=== PATIENT | female | born 1965 | race Caucasian/White ===

== ENCOUNTER 2016-05-23 09:41 | Inpatient (IN) | payer OTHER ==
[~2016-05-23] VITALS: Ht 165.1 cm; Wt 81.2 kg
[2016-05-23 08:20] VITALS: BP 127/82; PULSE 78; RESP 18
[~2016-05-23 09:41] MED LIST: METH10SO PO
[2016-05-23] MEDS ORDERED: KETOROLAC 30 MG INJ IV STA (10:17)
[2016-05-23] MEDS ORDERED: SODIUM CHLORIDE 0.9% 1L BAG IV* STA (10:17)
[2016-05-23] MEDS ORDERED: CEFEPIME 2GM/50 ML (PMX) 50 ML IVPB STA (10:17)
[2016-05-23] MEDS ORDERED: VANCOMYCIN 1 GM (PMX) 250 ML IVPB ONE (10:30)
[2016-05-23] MEDS ORDERED: ONDANSETRON 4 MG INJ IV PRN ×2 (11:30→14:00)
[2016-05-23] MEDS ORDERED: ACETAMINOPHEN 325 MG TAB PO PRN ×2 (11:30→14:00)
[2016-05-23 11:58] LABS: BASOPHILS % 0.1 % (0.0-2.0); EOSINOPHILS % 0.1 % (0.0-7.0); HEMATOCRIT 38.6 % (37.0-47.0); HEMOGLOBIN 13.6 g/dl (12.0-16.0); LYMPHOCYTES # 1.2 10^3/ul (0.8-2.9); LYMPHOCYTES % 14.8 % (15.0-51.0); MEAN CORPUSCULAR HGB CONC 35.1 g/dl (32.0-37.0); MEAN CORPUSCULAR VOLUME 93.9 fl (82.0-101.0); MEAN PLATELET VOLUME 8.5 fl (7.4-10.4); MONOCYTE # 0.5 10^3/ul (0.3-0.9); MONOCYTES % 6.4 % (0.0-11.0); NEUTROPHIL # 6.4 10^3/ul (1.6-7.5); NEUTROPHILS % 78.6 % (39.0-77.0); PLATELET COUNT 175 10^3/UL (140-440); RED BLOOD COUNT 4.11 10^6/ul (4.20-5.40); RED CELL DISTRIBUTION WIDTH 11.9 % (11.5-14.5); UNCORRECTED WBC 8.2 10^3/ul (4.8-10.8); WHITE BLOOD COUNT 8.2 10^3/ul (4.8-10.8)
[2016-05-23 12:00] LABS: CONDITION 1
[2016-05-23 12:13] LABS: ALBUMIN 3.8 g/dl (3.3-4.9); CHLORIDE 95 mmol/L (97-110); SODIUM 133 mmol/L (135-144)
[2016-05-23 12:14] LABS: POTASSIUM 3.6 mmol/L (3.5-5.1)
[2016-05-23 12:16] LABS: ALANINE AMINOTRANSFERASE 88 IU/L (13-69); ALKALINE PHOSPHATASE 135 IU/L (42-121); ANION GAP 16 (8-16); ASPARTATE AMINO TRANSFERASE 134 IU/L (15-46); BILIRUBIN,INDIRECT 0.7 mg/dl (0-1.1); BILIRUBIN,TOTAL 0.7 mg/dl (0.2-1.3); BLOOD UREA NITROGEN 14 mg/dl (7-20); CARBON DIOXIDE 26 mmol/L (21-31)
[2016-05-23 12:17] LABS: CALCIUM 8.8 mg/dl (8.4-10.2); GLUCOSE 97 mg/dl (70-220)
[2016-05-23 12:29] LABS: TROPONIN-I < 0.012 ng/ml (0.00-0.12)
--- NOTE | 2016-05-23 13:24 | ERA ---
ER Documentation Chief Complaint Date/Time DATE: 05/23/16 TIME: 13:21 Chief Complaint left leg redness and swelling from calf to thigh since yesterday HPI Patient is a 50-year-old female with heroin use who presents with left leg redness. She had left leg redness which started at her ankle yesterday. She said that she had new shoes which did not fit her well and were rubbing on the skin which started the redness. However he then had warmth to touch and redness that progressed up her leg all the way to the left groin and inner thigh. This happened within 24 hours. She has had no treatment as of yet. She denies fevers. She denies chest pain. She says that she does skin pop her when but in her shoulder and not in her leg. ROS All systems reviewed and are negative except as per history of present illness. Medications Home Meds Reported Medications Methadone Hcl* (Methadone Hcl*) 10 Mg/5 Ml Solution, 49 MG PO DAILY, ML 03/14/16 Allergies Allergies: Coded Allergies: No Known Allergy (Unverified , 03/14/16) PMhx/Soc Medical and Surgical Hx: pt denies Medical Hx History of Surgery: Yes (, r. wrist) Anesthesia Reaction: No Hx Neurological Disorder: No Hx Respiratory Disorders: No Hx Cardiac Disorders: No Hx Psychiatric Problems: No Hx Miscellaneous Medical Probl: No (hep C IV drug user ) Hx Alcohol Use: Yes (former) Hx Substance Use: Yes (on methodone for heroine ) Hx Tobacco Use: No Smoking Status: Former smoker FmHx Family History: No diabetes Physical Exam Vitals Vital Signs Date Time Temp Pulse Resp B/P Pulse Ox O2 Delivery O2 Flow Rate FiO2 05/23/16 09:44 98.0 88 20 135/70 98 Physical Exam Const: Mild distress Head: Atraumatic Eyes: Normal Conjunctiva ENT: Normal External Ears, Nose and Mouth. Neck: Full range of motion..~ No meningismus. Resp: Clear to auscultation bilaterally Cardio: Regular rate and rhythm, no murmurs Abd: Soft, non tender, non distended. Normal bowel sounds Skin: Erythema to the left ankle rating up to the left inner thigh and groin consistent with lymphangitic spread of cellulitis, no abscess Back: No midline or flank tenderness Ext: No cyanosis, or edema Neur: Awake and alert Psych: Normal Mood and Affect Result Diagram: 05/23/16 1120 05/23/16 1120 Results 24 hrs Laboratory Tests Test 05/23/16 11:20 Alanine Aminotransferase (ALT/SGPT) 88IU/L Albumin 3.8g/dl Albumin/Globulin Ratio 0.90 Alkaline Phosphatase 135IU/L Anion Gap 16 Aspartate Amino Transf (AST/SGOT) 134IU/L Basophils # 0.010^3/ul Basophils % 0.1% Blood Urea Nitrogen 14mg/dl Calcium Level 8.8mg/dl Carbon Dioxide Level 26mmol/L Chloride Level 95mmol/L Creatinine 0.70mg/dl Direct Bilirubin 0.00mg/dl Eosinophils # 0.010^3/ul Eosinophils % 0.1% Globulin 4.20g/dl Glucose Level 97mg/dl Hematocrit 38.6% Hemoglobin 13.6g/dl Indirect Bilirubin 0.7mg/dl Lactic Acid Level 1.3mmol/L Lymphocytes # 1.210^3/ul Lymphocytes % 14.8% Mean Corpuscular Hemoglobin 33.0pg Mean Corpuscular Hemoglobin Concent 35.1g/dl Mean Corpuscular Volume 93.9fl Mean Platelet Volume 8.5fl Monocytes # 0.510^3/ul Monocytes % 6.4% Neutrophils # 6.410^3/ul Neutrophils % 78.6% Nucleated Red Blood Cells # 0.010^3/ul Nucleated Red Blood Cells % 0.0/100WBC Platelet Count 39972^3/UL Potassium Level 3.6mmol/L Red Blood Count 4.1110^6/ul Red Cell Distribution Width 11.9% Sodium Level 133mmol/L Total Bilirubin 0.7mg/dl Total Protein 8.0g/dl Troponin I < 0.012ng/ml White Blood Count 8.210^3/ul Current Medications Medications (Trade) Dose Ordered Sig/Dayanara Route PRN Reason Start Time Stop Time Status Last Admin Dose Admin Sodium Chloride 2220 ml 2,220 ml BOLUS OVER 2 HOURS STAT IV* 05/23/16 10:17 05/23/16 10:19 DC 05/23/16 11:43 Cefepime HCl 50 ml @ 100 mls/hr ONCE STAT IVPB 05/23/16 10:17 05/23/16 10:46 DC 05/23/16 11:43 Vancomycin HCl (Vancocin) 250 ml @ 125 mls/hr ONCE ONCE IVPB 05/23/16 10:30 05/23/16 12:29 DC Ketorolac Tromethamine (Toradol) 30 mg ONCE STAT IV 05/23/16 10:17 05/23/16 10:19 DC 05/23/16 11:43 Ondansetron HCl (Zofran Inj) 4 mg BRIDGE ORDER PRN IV NAUSEA AND/OR VOMITING 05/23/16 11:30 05/24/16 11:29 Acetaminophen (Tylenol Tab) 650 mg ER BRIDGE PRN PO MILD PAIN/FEVER 05/23/16 11:30 05/24/16 11:29 Procedures/MDM Patient is a 50-year-old female presents with what appears to be acute cellulitis with lymphangitic spread. She said that she stopped smoking 3 months ago. She does not have diabetes. She does use heroin via skin popping. The patient has a normal white blood cell count and no fever or tachycardia at this time. I doubt sepsis. However given the lymphangitic spread I do believe that she requires IV antibiotics and admission. She will be given vancomycin and cefepime and I spoke with Dr. Pak for admission to a medical surgical bed. Departure Diagnosis: Primary Impression: Cellulitis Qualified Code: L03.116 - Cellulitis of left lower extremity Condition: XOCHITL Conde MD May 23, 2016 13:24
--- NOTE | 2016-05-23 13:46 | RADRPT ---
PROCEDURE: US Lower extremity Venous. CLINICAL INDICATION: Pain and swelling TECHNIQUE: Multiple sonographic images of the bilateral lower extremity deep venous system was obt ained utilizing grayscale, color-flow, compressive sonography and doppler imaging with augmentation. The images were reviewed on a PACS workstation. COMPARISON: None. FINDINGS: There is normal compressibility and flow within the bilateral common femoral, deep femoral, superfic ial femoral and popliteal veins. Normal respiratory variation and augmentation is seen. There is normal color flow and compressibility of bilateral posterior tibial and peroneal veins IMPRESSION: No sonographic evidence for bilateral lower extremity deep venous thrombosis. There are bilateral popliteal fossa Leary's cyst measuring 2.5 x 4.1 cm on the right side, and 1.4 x 3.3 cm on the left side. Reactive lymph nodes are noted in the left groin RPTAT: HH .Brandon Li MD, MD Date Time Electronically viewed and signed by .Brandon Li MD, on 05/23/2016 13:46 .W/
[2016-05-23] MEDS ORDERED: LORAZEPAM 2 MG INJ IV PRN (14:00)
[2016-05-23] MEDS: LEVOFLOXACIN 500MG/D5W (PMX) 100 ML IVPB SCH (14:00)
[2016-05-23] MEDS ORDERED: MAGNESIUM HYDROXIDE 30ML CUP PO PRN (14:00)
[2016-05-23] MEDS ORDERED: VANCOMYCIN IV PER PHARMACY XX SCH (14:00)
[2016-05-23] MEDS ORDERED: NACL 0.9% 3 ML SYG IV SCH (14:00)
--- NOTE | 2016-05-23 14:32 | CONS ---
DATE OF ADMISSION: 05/23/2016 DATE OF CONSULTATION: 05/23/2016 REFERRING PHYSICIAN: Tanner Medina, nurse practitioner. REASON FOR CONSULTATION: Left leg swelling. HISTORY OF PRESENT ILLNESS: This is a 50-year-old nondiabetic normotensive woman who presented to [facility] emergency room with left leg cellulitis, basically redness and swelling, that started yesterday. She has a long history of IV drug abuse, but she denies injecting into the left leg. She says she usually injects into her arm and skin pops. She thinks this came from a blister that formed from a new shoe. She does have some red areas from the calf extending up into the medial thigh. She has b een started on some IV antibiotics. I had actually seen her in ultrasound where she was having a v enous duplex PET scan performed which was negative. There is no DVT and no superficial phlebitis. PAST MEDICAL HISTORY: Again, is significant for IV drug abuse. MEDICATIONS: Consist of: 1. Methadone. 2. She is now getting vancomycin and cefepime. ALLERGIES: NO KNOWN DRUG ALLERGIES. SOCIAL HISTORY: She is a current drug user. She has hep C. She is on methadone for heroin withdra wal but she is still using heroin as well. She is a former smoker. PAST SURGICAL HISTORY: Significant for a right wrist fracture which was surgically repaired. She h as also had a termination of in the past. She was previously a heavy drinker, but does no t drink anymore. FAMILY HISTORY: Significant for diabetes. REVIEW OF SYSTEMS: She currently denies any chest pain, shortness of breath, nausea, vomiting, diar danielle. No fever, no chills, no recent weight gain or weight loss. PHYSICAL EXAMINATION: GENERAL: She is a middle-aged woman. She speaks Kenyan fluently. She is in no distress . VITAL SIGNS: She has been afebrile. Blood pressure is 135/70, heart rate is 88, respiratory rate i s 20, 98% sat on room air. She has normal respiratory function. ABDOMEN: Soft. EXTREMITIES: She has 2+ DP and PT pulses in both lower extremities. There is moderate left lower e xtremity edema with some streaking areas of redness up the left leg, beginning in the calf and exten ding up to the groin, consistent with cellulitis and lymphangitis. There is no area of fluctuance o r any drainage. She does have a small ulceration on the dorsal foot, probably where the cellulitis began, LABORATORIES: Her laboratory values are all normal. Again, venous duplex scan was negative for DV T. She does have multiple lymph nodes in the left groin, but otherwise normal. She has already been admitted. She is going to get some IV antibiotics. There is no evidence of an y vascular issues. This cellulitis should resolve with IV antibiotics and leg elevation. Dictated By: EDGAR RANGEL/NTS Conf#: [id number] DID#: [id number] CC: ROSARIO CARDOZA MD; TANNER MEDINA STUD DRIVER;*End*
--- NOTE | 2016-05-23 15:00 | HP ---
DATE OF ADMISSION: 05/23/2016 TIME OF EVALUATION: 1300 REASON FOR ADMISSION: Left lower extremity swelling and erythema with associated pain. CONSULTANTS: 1. Dr. Evelio Arteaga, vascular surgery 2. Dr. Jb Glover, infectious diseases HISTORY OF PRESENT ILLNESS: This is a 50-year-old female patient who denies any past medical history other than history of heroin abuse for which she is currently on methadone. The patient verbalized that she recently had a relapse with heroin abuse when she injected heroin into her right shoulder. The patient arrived to the emergency room today with sudden onset of left lower extremity edema and erythema with associated pain. The patient verbalized that she has been having left lower extremity pain that started approximately 3 days ago, which became worse over the past 24 hours. The patient verbalized that she was more or less immobile for the past 3 days. The patient denied any obvious injuries to the left lower extremity. She denied any insect bites. She denied any IV drug abuse on the left lower extremity. The patient denied any prior similar history. The patient verbalized that she was feeling febrile at home. In the emergency room, the patient's labs showed no significant abnormalities other than the patient had transaminitis without any hyperbilirubinemia. The patient's WBC was within normal limits. The patient's vital signs were stable. In the emergency room, the patient was treated with IV vancomycin and IV cefepime. PAST MEDICAL HISTORY: Heroin abuse, hepatitis C. PAST SURGICAL HISTORY: Right wrist surgery, . HOME MEDICATIONS: Methadone 50 mg p.o. daily. ALLERGIES: NO KNOWN DRUG ALLERGIES. SOCIAL HISTORY: The patient lives at home. Former smoker. Current heroin abuser, on methadone. Denies any history of alcohol abuse. REVIEW OF SYSTEMS: A 12-point review of systems were made and the review of systems is negative other than what is mentioned in the history of present illness. PHYSICAL EXAMINATION: VITAL SIGNS: Temperature 98.0, pulse rate 88, respiratory rate 20, blood pressure 135/70, oxygen saturation 98% on room air. GENERAL: This is a well-built, well-nourished female lying in bed in no apparent distress. HEENT: Normocephalic and atraumatic. Eyes: Sclerae clear, conjunctivae clear. ENT: Nasal septum as well oral mucosa are moist. NECK: Supple, no JVD, no bruits. RESPIRATORY: Bilaterally clear to auscultation, with no adventitious breath sounds. No use of accessory muscles of respiration. CARDIAC: Regular rate and rhythm. No murmurs heard. GASTROINTESTINAL: Abdomen soft, nontender, nondistended. Bowel sounds positive in all 4 quadrants. GENITOURINARY: Deferred. EXTREMITIES: No cyanosis, no clubbing. Left lower extremity 2 to 3+ edema with areas of ecchymosis down from upper thigh all the way down to the left fold with tenderness to touch upon palpation. No needle tracks. Left lower extremity pedal pulse diminished. Right lower extremity within normal limits. NEUROLOGIC: The patient is awake, alert, and oriented x3. Cranial nerves are grossly intact. LABORATORY AND DIAGNOSTIC DATA: WBC 8.3, hemoglobin 13.6, hematocrit 38.6, platelet count 175. Sodium 133, potassium 3.0, chloride 95, carbon dioxide 26, anion gap 16, BUN 14, creatinine 0.70, glucose 97. Lactic acid 1.3, calcium 8.8 , AST 134, ALT 88, alkaline phosphatase 135, total protein 8.0, albumin 3.8. IMPRESSION: This is a 50-year-old female who came to the emergency room with chief complaint of left lower extremity edema and erythema, who will be admitted here for further treatment and evaluation. ASSESSMENT AND PLAN: 1. Left lower extremity cellulitis. The patient's bilateral lower extremity venous Doppler study is negative for any DVT. The patient will be continued on antibiotics. A vascular surgery consult will be done to further evaluate the patient's etiology of the presentation. Cannon cultures will be obtained. The patient will be provided with adequate pain control. 2. Heroin abuse, currently on methadone. The patient's methadone will be resumed. 3. Transaminitis. Most probably secondary to history of hepatitis C. Will monitor the LFTs closely. Will avoid any hepatotoxic medications. Plan. The patient will be admitted to inpatient medical/surgical floor. The patient will be started on a regular diet. The patient will be started on DVT prophylaxis and gastrointestinal prophylaxis. The patient will remain a full code. Activities will be bed rest with bathroom privileges. Infectious disease and vascular surgery consultants were already called on this patient. The rest of the patient's plan will be based on the clinical course, the results of diagnostic studies, and inputs from consultants. Based on the patient's clinical presentation, she most probably requires at least one midnight's stay for further management and evaluation of her clinical presentation. The case and management of this patient was fully discussed with Dr. De La Rosa. Approximately 50 minutes were spent on the history and physical of this patient. ELI DE LA ROSA MD, AM/DANIELLE Conf#: [id number] DID#: [id number] MTDD
[2016-05-23] MEDS ORDERED: [UNRECOGNIZED DRUG - REMARK] XX SCH (15:30)
[2016-05-23 19:00] VITALS: BP 122/76; RESP 18
[2016-05-23] MEDS: HYDROmorphONE 1 MG/ML SYG IV PRN (19:53)
[2016-05-23 20:05] VITALS: Ht 165.1 cm; Wt 81.2 kg
[2016-05-23] MEDS: HYDROCODONE/APAP (5/325) TAB PO PRN (22:07)
[2016-05-23] MEDS: FAMOTIDINE 20 MG TAB PO SCH (22:07)
[2016-05-24] MEDS: VANCOMYCIN 1 GM in NS 250 ML IVPB SCH ×2 (02:23→15:49)
[2016-05-24 05:16] LABS: HAAIG REFLEX REFLEX FILED
[2016-05-24 05:46] LABS: BASOPHILS % 0.3 % (0.0-2.0); EOSINOPHILS % 0.2 % (0.0-7.0); HEMATOCRIT 35.8 % (37.0-47.0); HEMOGLOBIN 12.4 g/dl (12.0-16.0); LYMPHOCYTES # 1.4 10^3/ul (0.8-2.9); LYMPHOCYTES % 13.5 % (15.0-51.0); MEAN CORPUSCULAR HEMOGLOBIN 32.5 pg (29.0-33.0); MEAN CORPUSCULAR HGB CONC 34.6 g/dl (32.0-37.0); MEAN CORPUSCULAR VOLUME 93.9 fl (82.0-101.0); MEAN PLATELET VOLUME 9.6 fl (7.4-10.4); MONOCYTES % 9.6 % (0.0-11.0); NEUTROPHILS % 76.4 % (39.0-77.0); PLATELET COUNT 139 10^3/UL (140-440); RED BLOOD COUNT 3.82 10^6/ul (4.20-5.40); RED CELL DISTRIBUTION WIDTH 12.4 % (11.5-14.5); UNCORRECTED WBC 10.4 10^3/ul (4.8-10.8); WHITE BLOOD COUNT 10.4 10^3/ul (4.8-10.8)
[2016-05-24 05:52] LABS: CHOL/HDL RATIO 3.6 RATIO; MAGNESIUM 1.5 mg/dl (1.7-2.5)
[2016-05-24 05:54] LABS: ALBUMIN 2.9 g/dl (3.3-4.9)
[2016-05-24 05:55] LABS: POTASSIUM 3.5 mmol/L (3.5-5.1)
[2016-05-24 05:57] LABS: ALBUMIN/GLOBULIN RATIO 0.78; BILIRUBIN,DIRECT 0.3 mg/dl (0.00-0.20); BILIRUBIN,INDIRECT 0.6 mg/dl (0-1.1); BILIRUBIN,TOTAL 0.9 mg/dl (0.2-1.3); CREATININE 0.61 mg/dl (0.44-1.00); TOTAL PROTEIN 6.6 g/dl (6.1-8.1)
[2016-05-24 05:58] LABS: CALCIUM 7.9 mg/dl (8.4-10.2)
[2016-05-24 06:04] LABS: NUCLEATED RED BLOOD CELLS # 0.2 10^3/ul (0.0-0.0)
[2016-05-24 06:05] LABS: CONDITION 1; LH ANALYZER COMMENTS 1; SUSPECT 1
[2016-05-24] MEDS ORDERED: MAGNESIUM SULFATE 3 GM in SOD CHLORIDE 0.9% 100 ML IVPB ONE (06:30)
[2016-05-24 06:33] LABS: HEPATITIS B CORE ANTIBODY REACTIVE (NEGATIVE)
[2016-05-24 07:34] LABS: C-REACTIVE PROTEIN 4.2 mg/dl (0.0-0.9)
[2016-05-24 07:46] LABS: THYROID STIMULATING HORMONE 1.53 MIU/L (0.465-4.680)
[2016-05-24] MEDS: FAMOTIDINE 20 MG TAB PO SCH ×2 (08:18→21:12)
[2016-05-24] MEDS: HYDROmorphONE 1 MG/ML SYG IV PRN (08:18)
[2016-05-24] MEDS: ENOXAPARIN 40 MG/0.4 ML SYG SC SCH (08:20)
[2016-05-24 08:31] VITALS: BP 114/64; RESP 18
[2016-05-24] MEDS ORDERED: METHADONE HCL XX SCH (09:00)
--- NOTE | 2016-05-24 09:51 | PN ---
Date/Time of Note Date/Time of Note DATE: 05/24/16 TIME: 09:50 Assessment/Plan VTE Prophylaxis VTE Prophylaxis Intervention: LMWH Lines/Catheters IV [facility]ter [facility]from [facility] Saline Lock Urinary Cath still in place: No Assessment/Plan Chief Complaint/Hosp Course 1. Left lower extremity cellulitis. Continue antibiotics as per infectious diseases. Was seen and evaluated by vascular surgery. No evidence of any acute vascular issues. Venous Doppler study negative for any DVT. 2. Heroin abuse, currently on methadone. Continue methadone. 3. Transaminitis. Most probably secondary to underlying hepatitis. Patient has a history of hepatitis C. The patient's hepatitis B serology were also positive. Will monitor. 4. Hypomagnesemia. Replete. 5. Fluids, electrolytes, and nutrition. Regular diet as tolerated. 6. DVT prophylaxis. Subcutaneous Lovenox. 7. Gastrointestinal prophylaxis. Histamine 2 receptor blockers. 8. Plan. Continue pain control. Continue elevation of the left lower extremity. Continue antibiotics as per infectious diseases. Replete magnesium. Case discussed with Dr. Milan. Problems: Subjective 24 Hr Interval Summary Free Text/Dictation Left lower extremity edema and erythema improving. Exam/Review of Systems Vital Signs Vitals Vital Signs Date Time Temp Pulse Resp B/P Pulse Ox O2 Delivery O2 Flow Rate FiO2 05/24/16 08:31 97.8 73 18 114/64 97 05/23/16 08:20 Room Air Intake and Output 05/23/16 05/23/16 05/24/16 15:00 23:00 07:00 Intake Total 850 ml Output Total 800 ml Balance 50 ml Exam GENERAL: This is a well-built, well-nourished female lying in bed in no apparent distress. HEENT: Normocephalic and atraumatic. Eyes: Sclerae clear, conjunctivae clear. ENT: Nasal septum as well oral mucosa are moist. NECK: Supple, no JVD, no bruits. RESPIRATORY: Bilaterally clear to auscultation, with no adventitious breath sounds. No use of accessory muscle respiration. CARDIAC: Regular rate and rhythm. No murmurs heard. GASTROINTESTINAL: Abdomen soft, nontender, nondistended. Bowel sounds positive in all 4 quadrants. GENITOURINARY: Deferred. EXTREMITIES: No cyanosis, no clubbing. Left lower extremity 2 to 3+ edema with areas of ecchymosis down from upper thigh all the way down to the left fold with tenderness to touch upon palpation. No needle tracks. Left lower extremity pedal pulse diminished. Right lower extremity within normal limits. NEUROLOGIC: The patient is awake, alert, and oriented x3. Cranial nerves are grossly intact. Results Result Diagram: 05/24/16 0435 05/24/16 0435 Results 24 hrs Laboratory Tests Test 05/23/16 11:20 05/23/16 13:00 05/23/16 14:55 05/24/16 04:35 Alanine Aminotransferase (ALT/SGPT) 88 H 73 H Albumin 3.8 2.9 L Albumin/Globulin Ratio 0.90 0.78 Alkaline Phosphatase 135 H 127 H Anion Gap 16 15 Aspartate Amino Transf (AST/SGOT) 134 H 94 H Basophils # 0.0 0.0 Basophils % 0.1 0.3 Blood Urea Nitrogen 14 10 Calcium Level 8.8 7.9 L Carbon Dioxide Level 26 22 Chloride Level 95 L 101 Creatinine 0.70 0.61 Direct Bilirubin 0.00 0.30 #H Eosinophils # 0.0 0.0 Eosinophils % 0.1 0.2 Globulin 4.20 H 3.70 H Glucose Level 97 86 Hematocrit 38.6 35.8 L Hemoglobin 13.6 12.4 Indirect Bilirubin 0.7 0.6 Lactic Acid Level 1.3 0.8 0.9 Lymphocytes # 1.2 1.4 Lymphocytes % 14.8 L 13.5 L Mean Corpuscular Hemoglobin 33.0 32.5 Mean Corpuscular Hemoglobin Concent 35.1 34.6 Mean Corpuscular Volume 93.9 93.9 Mean Platelet Volume 8.5 9.6 Monocytes # 0.5 1.0 H Monocytes % 6.4 9.6 Neutrophils # 6.4 8.0 H Neutrophils % 78.6 H 76.4 Nucleated Red Blood Cells # 0.0 0.2 H Nucleated Red Blood Cells % 0.0 2.0 H Platelet Count 175 139 #L Potassium Level 3.6 3.5 Red Blood Count 4.11 L 3.82 L Red Cell Distribution Width 11.9 12.4 Sodium Level 133 L 134 L Total Bilirubin 0.7 0.9 Total Protein 8.0 6.6 # Troponin I < 0.012 White Blood Count 8.2 10.4 # C-Reactive Protein 4.2 H Cholesterol Level 88 L Cholesterol/HDL Ratio 3.6 Erythrocyte Sedimentation Rate 45 H Free Thyroxine 1.43 HDL Cholesterol 24 L Hemoglobin A1c 5.0 Hepatitis B Core Total Antibody REACTIVE H Hepatitis B Surface Antigen NEGATIVE Hepatitis C Antibody REACTIVE H LDL Cholesterol, Calculated 36 Magnesium Level 1.5 L Phosphorus Level 3.0 Thyroid Stimulating Hormone (TSH) 1.530 Triglycerides Level 142 Medications Medications Current Medications Ondansetron HCl (Zofran Inj) 4 mg Q6H PRN IV NAUSEA AND/OR VOMITING; Start at 14:00 Acetaminophen (Tylenol Tab) 650 mg Q6H PRN PO PAIN LEVEL 1-3 OR FEVER Last administered on 05/24/16 00:27; Admin Dose 650 MG; Start 05/23/16 at 14:00 Acetaminophen/ Hydrocodone Bitart (Hawley (5/325)) 1 tab Q6H PRN PO MODERATE PAIN LEVEL 4-6 Last administered on 05/23/16 22:07; Admin Dose 1 TAB; Start at 14:00 Hydromorphone HCl (Dilaudid) 0.5 mg Q4H PRN IV SEVERE PAIN LEVEL 7-10 Last administered on 05/24/16 08:18; Admin Dose 0.5 MG; Start 05/23/16 at 14:00 Magnesium Hydroxide (Milk Of Mag) 30 ml DAILY PRN PO CONSTIPATION; Start at 14:00 Bisacodyl (Dulcolax) 5 mg DAILY PRN PO CONSTIPATION; Start 05/23/16 at 14:00 Famotidine (Pepcid) 20 mg Q12 PO Last administered on 05/24/16 08:18; Admin Dose 20 MG; Start 05/23/16 at 21:00 Enoxaparin Sodium (Lovenox) 40 mg DAILY SC Last administered on 05/24/16 08:20 ; Admin Dose 40 MG; Start 05/24/16 at 09:00 Miscellaneous Information 49 mg DAILY XX ; Start 05/24/16 at 09:00; Status UNV Lorazepam 1 mg 1 mg Q8H PRN IV Anxiety; Start 05/23/16 at 14:00 Levofloxacin/ Dextrose (Levaquin 500mg/ D5W 100 ml (Pmx)) 100 ml @ 100 mls/hr Q24H IVPB ; Start 05/23/16 at 14:00 Miscellaneous Information 1 ea 1 ea NOTE XX ; Start 05/23/16 at 15:30 Vancomycin HCl (Vancocin) 250 ml @ 125 mls/hr Q12H IVPB Last administered on t 02:23; Admin Dose 125 MLS/HR; Start 05/24/16 at 02:00 ELI HERNANDEZ NP May 24, 2016 09:50
--- NOTE | 2016-05-24 12:34 | PN ---
DATE: 05/24/2016 INFECTIOUS DISEASE PROGRESS NOTE SUBJECTIVE: No acute events overnight. The patient is alert, lying comfortably in bed. Denies rl sea, vomiting, diarrhea. She has significant pain in her left lower extremity. No fevers. LABORATORY DATA: WBC 10.4 with platelets 139, neutrophils 76.4, no bands. BUN 10, creatinine 0.61. MICROBIOLOGY: Blood cultures have been negative. DIAGNOSTICS: Extremity ultrasound revealed no DVT. ANTIMICROBIALS: 1. Vancomycin. 2. Levaquin. PHYSICAL EXAMINATION: GENERAL: This is an obese, well-developed, middle-aged white woman who is alert, in no distress. HEENT: Head atraumatic, normocephalic. Sclerae anicteric. Buccal mucosa pink. NECK: Supple, trachea midline. CHEST: Rise symmetrical. Breath sounds clear. HEART: S1, S2. ABDOMEN: Soft, bowel sounds present. EXTREMITIES: Left lower extremity edema, erythema and multiple scabs on her foot. ASSESSMENT: 1. Systemic inflammatory response syndrome. 2. Left lower extremity cellulitis. 3. History of heroin abuse, currently on methadone. PLAN: The patient remains stable. We will continue her on current antimicrobials. Keep left lower extremity elevated on 2 pillows, swab nares for MRSA, and await for clinical improvement. Dictated By: SANTIAGO RAMON MAINTENANCE FITTER for MALINDA JACOBSEN/DANIELLE Conf#: [id number] DID#: [id number]
[2016-05-24] MEDS: LEVOFLOXACIN 500MG/D5W (PMX) 100 ML IVPB SCH (13:51)
[2016-05-24] MEDS: METHADONE 10 MG TAB PO SCH (15:49)
--- NOTE | 2016-05-24 17:42 | CONS ---
DATE OF ADMISSION: 05/23/2016 DATE OF CONSULTATION: 05/23/2016 TYPE OF CONSULTATION: Infectious Disease. REASON FOR CONSULTATION: Antibiotic management. HISTORY OF PRESENT ILLNESS: Shoshana Lovett is a 50-year-old female who comes in with left lower extremit y and erythema associated with pain. Patient denies any history other than heroin abuse. She is cu rrently on methadone. She recently had a relapse with heroin abuse and injected her right shoulder. She complains of sudden onset of left lower extremity edema, erythema and associated pain. In the emergency room, her white count was within normal limits. She was started on vancomycin and cefepi me with a history of heroin abuse. PAST SURGICAL HISTORY: She had right breast surgery and she also had an . ALLERGIES: NONE TO PENICILLIN, SULFA OR FOODS. MEDICATIONS: Per chart. REVIEW OF SYSTEMS: Noncontributory. PHYSICAL EXAMINATION GENERAL: The patient is a well-developed, well-nourished female who is alert, responsive, in no acu te distress. VITAL SIGNS: Stable. She is afebrile. SKIN: Without generalized rash. HEENT: Within normal limits. NECK: Supple. LYMPHATIC: Lymph nodes: None palpable. CHEST: Decreased breath sounds at the bases. HEART: Without murmur or gallop. ABDOMEN: Soft, nontender, without organosplenomegaly or masses. EXTREMITIES: Without cyanosis or clubbing. She has 2+ edema. There is an area of ecchymosis down the upper thigh. There are no needle tracks. Left lower extremity pedal pulses are diminished. Ri ght lower extremity within normal limits. ANCILLARY LABORATORY DATA: White count is 8.3; H and H of 13.6/38.6; platelet count 175,000. BUN a nd creatinine 14/0.7. Lactic acid is 1.3. Liver function tests were within normal limits. IMPRESSION AND PLAN: In summary, the patient came in with left lower extremity edema and erythema. She had bilateral lower extremity Dopplers, which were negative. Vascular surgery consultation was requested. Blood cultures so far are negative. DVT study showed reactive lymph nodes in the left groin, bilateral popliteal fossa Leary cyst. There is no evidence of bilateral lower extremity deep vein thrombophlebitis. Patient was begun on vancomycin and Levaquin. She had a systemic inflammat ory response syndrome, left lower extremity cellulitis, heroin abuse. We will continue her on her c urrent therapy, vancomycin and Levaquin, swab her nares for methicillin-resistant Staphylococcus aur eus, elevate her left lower extremity on 2 or 3 pillows. Dictated By: MALINDA JUNG MD, JD/DANIELLE Conf#: [id number] DID#: [id number]
[2016-05-24] MEDS: HYDROCODONE/APAP (5/325) TAB PO PRN (18:06)
[2016-05-24 19:00] VITALS: BP 105/61; RESP 18
[2016-05-24 23:55] VITALS: BP 99/69; PULSE 68; RESP 17
[2016-05-25] MEDS: VANCOMYCIN 1 GM in NS 250 ML IVPB SCH ×2 (01:52→15:08)
[2016-05-25 05:54] LABS: ADD SCAN DIFF NO
[2016-05-25 06:06] LABS: ABNORMAL IP MESSAGE 1; HEMOGLOBIN 12.1 g/dl (12.0-16.0); MEAN CORPUSCULAR HEMOGLOBIN 31.9 pg (29.0-33.0); MEAN CORPUSCULAR HGB CONC 33.6 g/dl (32.0-37.0); PLATELET COUNT 91 10^3/UL (140-415); RED BLOOD COUNT 3.79 10^6/ul (4.20-5.40); RED CELL DISTRIBUTION WIDTH 12.8 % (11.5-14.5); WHITE BLOOD COUNT 9.3 10^3/ul (4.8-10.8)
[2016-05-25 06:13] LABS: MAGNESIUM 2.1 mg/dl (1.7-2.5); PHOSPHORUS 2.8 mg/dl (2.5-4.9)
[2016-05-25 06:52] LABS: POTASSIUM 3.8 mmol/L (3.5-5.1)
[2016-05-25 06:54] LABS: BILIRUBIN,INDIRECT 0.4 mg/dl (0-1.1); BILIRUBIN,TOTAL 0.4 mg/dl (0.2-1.3); CREATININE 0.58 mg/dl (0.44-1.00)
[2016-05-25 06:55] LABS: ALBUMIN/GLOBULIN RATIO 0.73; CALCIUM 8.2 mg/dl (8.4-10.2); TOTAL PROTEIN 7.1 g/dl (6.1-8.1)
[2016-05-25 07:14] LABS: MEAN PLATELET VOLUME 12.4 fl (7.4-10.4)
[2016-05-25 08:15] VITALS: BP 99/58; RESP 14
[2016-05-25] MEDS: METHADONE 10 MG TAB PO SCH (09:06)
[2016-05-25] MEDS: FAMOTIDINE 20 MG TAB PO SCH ×2 (09:06→21:41)
[2016-05-25] MEDS: ENOXAPARIN 40 MG/0.4 ML SYG SC SCH (09:08)
[2016-05-25 10:10] LABS: LYMPHOCYTES # 1.3 10^3/ul (0.8-2.9); MONOCYTE # 0.5 10^3/ul (0.3-0.9); NEUTROPHIL # 7.5 10^3/ul (1.6-7.5); PLATELETS CLUMPS FEW
--- NOTE | 2016-05-25 10:35 | PN ---
Date/Time of Note Date/Time of Note DATE: 05/25/16 TIME: 10:31 Assessment/Plan VTE Prophylaxis VTE Prophylaxis Intervention: LMWH Lines/Catheters IV Catheter Type (from [facility]): Saline Lock Urinary Cath still in place: No Assessment/Plan Chief Complaint/Hosp Course 1. Left lower extremity cellulitis. Continue antibiotics as per infectious diseases. Was seen and evaluated by vascular surgery. No evidence of any acute vascular issues. Venous Doppler study negative for any DVT. 2. Heroin abuse, currently on methadone. Continue methadone. 3. Transaminitis. Most probably secondary to underlying hepatitis. Patient has a history of hepatitis C. The patient's hepatitis B serology were also positive. Will monitor. 4. Thrombocytopenia. No evidence of any active bleeding. Will decrease the dose of Lovenox. Will monitor the platelet count closely. 5. Fluids, electrolytes, and nutrition. Regular diet as tolerated. 6. DVT prophylaxis. Subcutaneous Lovenox. 7. Gastrointestinal prophylaxis. Histamine 2 receptor blockers. 8. Plan. Continue pain control. Continue elevation of the left lower extremity. Continue antibiotics as per infectious diseases. Case discussed with Dr. Milan. Problems: Subjective 24 Hr Interval Summary Free Text/Dictation Still having left lower extremity edema and pain. Exam/Review of Systems Vital Signs Vitals Vital Signs Date Time Temp Pulse Resp B/P Pulse Ox O2 Delivery O2 Flow Rate FiO2 05/25/16 08:15 99.1 70 14 99/58 97 05/24/16 23:55 Room Air Intake and Output 05/24/16 05/24/16 05/25/16 15:00 23:00 07:00 Intake Total 100 ml 1590 ml 950 ml Output Total 500 ml 600 ml Balance 100 ml 1090 ml 350 ml Exam GENERAL: This is a well-built, well-nourished female lying in bed in no apparent distress. HEENT: Normocephalic and atraumatic. Eyes: Sclerae clear, conjunctivae clear. ENT: Nasal septum as well oral mucosa are moist. NECK: Supple, no JVD, no bruits. RESPIRATORY: Bilaterally clear to auscultation, with no adventitious breath sounds. No use of accessory muscle respiration. CARDIAC: Regular rate and rhythm. No murmurs heard. GASTROINTESTINAL: Abdomen soft, nontender, nondistended. Bowel sounds positive in all 4 quadrants. GENITOURINARY: Deferred. EXTREMITIES: No cyanosis, no clubbing. Left lower extremity 2+ edema with areas of ecchymosis [circumferential] in the left lower extremity. No needle tracks. Left lower extremity pedal pulse diminished. Right lower extremity within normal limits. NEUROLOGIC: The patient is awake, alert, and oriented x3. Cranial nerves are grossly intact. Results Result Diagram: 05/25/16 0421 05/25/16 0421 Results 24 hrs Laboratory Tests Test 05/25/16 04:21 Alanine Aminotransferase (ALT/SGPT) 60 Albumin 3.0 L Albumin/Globulin Ratio 0.73 Alkaline Phosphatase 159 H Anion Gap 17 H Aspartate Amino Transf (AST/SGOT) 67 H Blood Urea Nitrogen 8 Calcium Level 8.2 L Carbon Dioxide Level 24 Chloride Level 99 Clumped Platelets FEW Creatinine 0.58 Direct Bilirubin 0.00 # Globulin 4.10 H Glucose Level 101 Hematocrit 36.0 L Hemoglobin 12.1 Indirect Bilirubin 0.4 Lymphocytes # 1.3 Lymphocytes % 14.0 L Magnesium Level 2.1 Mean Corpuscular Hemoglobin 31.9 Mean Corpuscular Hemoglobin Concent 33.6 Mean Corpuscular Volume 95.0 Mean Platelet Volume 12.4 #H Monocytes # 0.5 Monocytes % 5.0 Neutrophils # 7.5 Neutrophils % 81.0 H Phosphorus Level 2.8 Platelet Count 91 L Potassium Level 3.8 Red Blood Count 3.79 L Red Cell Distribution Width 12.8 Sodium Level 136 Total Bilirubin 0.4 Total Protein 7.1 White Blood Count 9.3 Medications Medications Current Medications Ondansetron HCl (Zofran Inj) 4 mg Q6H PRN IV NAUSEA AND/OR VOMITING; Start at 14:00 Acetaminophen (Tylenol Tab) 650 mg Q6H PRN PO PAIN LEVEL 1-3 OR FEVER Last administered on 05/24/16 00:27; Admin Dose 650 MG; Start 05/23/16 at 14:00 Acetaminophen/ Hydrocodone Bitart ([place] (5/325)) 1 tab Q6H PRN PO MODERATE PAIN LEVEL 4-6 Last administered on 05/24/16 18:06; Admin Dose 1 TAB; Start at 14:00 Hydromorphone HCl (Dilaudid) 0.5 mg Q4H PRN IV SEVERE PAIN LEVEL 7-10 Last administered on 05/24/16 08:18; Admin Dose 0.5 MG; Start 05/23/16 at 14:00 Magnesium Hydroxide (Milk Of Mag) 30 ml DAILY PRN PO CONSTIPATION; Start at 14:00 Bisacodyl (Dulcolax) 5 mg DAILY PRN PO CONSTIPATION; Start 05/23/16 at 14:00 Famotidine (Pepcid) 20 mg Q12 PO Last administered on 05/25/16 09:06; Admin Dose 20 MG; Start 05/23/16 at 21:00 Lorazepam 1 mg 1 mg Q8H PRN IV Anxiety; Start 05/23/16 at 14:00 Levofloxacin/ Dextrose 100 ml @ 100 mls/hr Q24H IVPB Last administered on 05/24 13:51; Admin Dose 100 MLS/HR; Start 05/23/16 at 14:00 Vancomycin HCl (Vancocin) 250 ml @ 125 mls/hr Q12H IVPB Last administered on 01:52; Admin Dose 125 MLS/HR; Start 05/24/16 at 02:00 Miscellaneous Information (*Rx Drug Level Order Reminder*) VANCO TROUGH @ 1, 300 ON... ONCE ONCE XX ; Start 05/25/16 at 13:00; Stop 05/25/16 at 13:01 Methadone HCl (Methadone Liq) 49 mg DAILY PO ; Start 05/26/16 at 09:00 Enoxaparin Sodium (Lovenox) 30 mg DAILY SC ; Start 05/26/16 at 09:00 ELI HERNANDEZ NP May 25, 2016 10:35
[2016-05-25 12:26] LABS: ADD UMIC NO; URINE BILIRUBIN (Dip) NEGATIVE (NEGATIVE); URINE BLOOD (Dip) NEGATIVE (NEGATIVE); URINE COLOR YELLOW (YELLOW); URINE GLUCOSE (Dip) NEGATIVE (NEGATIVE); URINE KETONES (Dip) NEGATIVE (NEGATIVE); URINE LEUKOCYTE ESTERASE (Dip) NEGATIVE (NEGATIVE); URINE NITRITE (Dip) NEGATIVE (NEGATIVE); URINE TOTAL PROTEIN (Dip) NEGATIVE (NEGATIVE); URINE UROBILINOGEN (Dip) 2.0 E.U./dL (0.1-1.0)
--- NOTE | 2016-05-25 12:45 | PN ---
DATE: 05/25/2016 SUBJECTIVE: No events overnight. No fevers. The patient is lying comfortably in bed. Vital signs stable. She is on vancomycin and Levaquin. MICROBIOLOGY: Blood cultures negative. MRSA swab in process. PHYSICAL EXAMINATION: GENERAL: Well-developed, middle-aged white woman who is lying comfortably in bed. HEENT: Head atraumatic, normocephalic. Sclerae anicteric. Buccal mucosa pink. NECK: Supple, trachea midline. CHEST: Rise symmetrical. Breath sounds clear. HEART: S1, S2. ABDOMEN: Soft. Bowel tones present. EXTREMITIES: Left lower extremity edema, erythema, slightly better. ASSESSMENT: 1. Left lower extremity cellulitis. 2. History of heroin abuse, current methadone. PLAN: The patient remains stable on appropriate antimicrobials. Continue left lower extremity elev ation. Dictated By: SANTIAGO RAMON ACCOUNTING GENERALIST for MALINDA JUNG MD NI/NTS Conf#: [id number] DID#: [id number]
[2016-05-25 13:03] LABS: BARBITURATES Negative (NEGATIVE); BENZODIAZEPINES Negative (NEGATIVE); CANNABINOIDS Negative (NEGATIVE); COCAINE Negative (NEGATIVE); OPIATES Positive (NEGATIVE)
[2016-05-25] MEDS: LEVOFLOXACIN 500MG/D5W (PMX) 100 ML IVPB SCH (13:40)
[2016-05-25 19:00] VITALS: BP 100/56; RESP 18
[2016-05-26] MEDS: VANCOMYCIN 1.5 GM in SOD CHLORIDE 0.9% 250 ML IVPB SCH ×2 (03:48→15:52)
[2016-05-26 07:52] VITALS: BP 95/60; RESP 16
--- NOTE | 2016-05-26 08:43 | CONS ---
Date/Time of Note Date/Time of Note DATE: 05/26/16 TIME: 08:42 Assessment/Plan Assessment/Plan Chief Complaint/Hosp Course D PROGRESS NOTE CURRENT ABX=> Vanco IV + Levaquin + Bactroban 24H INTERVAL SUMMARY * Afebrile, VSS, NAD => New to me today, pt tells me erythema and edema LLEXT improved * (+)MRSA Nares Screen PHYSICAL EXAMINATION: GENERAL: VSS, NAD HEENT: Unremarkable NECK: Supple, trachea midline. CHEST: Rise symmetrical, without dyspnea on observation HEART: Pulse RRR ABDOMEN: Soft, benign EXTREMITIES: Warm, LLEXT with demarcated erythema up to thigh, (+)edema ankle/ pedal/calf w/healing open lesions ID ASSESSMENT 50 yo F w/PMHx IVDU = heroin, now on Methadone admit with: 1. Acute LLEXT cellulitis 2. Memory deficit, so stated by patient 3. Tobaccoism - quit x 3 mos 4. Chronic pain issues: Methadone 5. H/O Polysubstance abuse: Former Heroin/Former ETOH (+)MRSA Nares -> Bactroban INVASIVES: PIV ABX ALLERGY: KNDA CURRENT ABX: => Vanco IV + Ceftriaxone dc Levaquin ID RECOMMENDATIONS 1. Continue current ABX needs IV Vanco until erythema/edema retreats * Change Levaquin to Ceftriaxone IV (avoid Fluoroquinolones when Methadone onboard due to both may prolong QT interval). * Anticipate DC home on PO Bactrim DS 1 TAB PO BID x 10 days + Keflex 500mg PO TID x 10 days 2. Bactroban onboard for MRSA decolonization 3. Will Rx Hibiclens bath QPM w/attention to hand hygiene 4. Continued smoking cessation strongly advocated . Problems: Consultation Date/Type/Reason Admit Date/Time May 23, 2016 at 11:26 Initial Consult Date Exam/Review of Systems Vital Signs Vitals Vital Signs Date Time Temp Pulse Resp B/P Pulse Ox O2 Delivery O2 Flow Rate FiO2 05/26/16 07:52 97.8 64 16 95/60 96 05/24/16 23:55 Room Air Intake and Output 05/25/16 05/25/16 05/26/16 15:00 23:00 07:00 Intake Total 1290 ml 840 ml Output Total 300 ml 500 ml Balance 990 ml 340 ml Results Result Diagram: 05/25/1642005/25/16 0421 Results 24 hrs Laboratory Tests Test 05/25/16 11:20 05/25/16 13:30 Urine Amphetamines Screen POSITIVE Urine Barbiturates Negative Urine Benzodiazepines Screen Negative Urine Cannabinoids Negative Urine Cocaine Screen Negative Urine Opiates Screen Positive Vancomycin Level Trough 7.7 L Medications Medications Current Medications Ondansetron HCl (Zofran Inj) 4 mg Q6H PRN IV NAUSEA AND/OR VOMITING; Start at 14:00 Acetaminophen (Tylenol Tab) 650 mg Q6H PRN PO PAIN LEVEL 1-3 OR FEVER Last administered on 05/24/16 00:27; Admin Dose 650 MG; Start 05/23/16 at 14:00 Acetaminophen/ Hydrocodone Bitart ([place] (5/325)) 1 tab Q6H PRN PO MODERATE PAIN LEVEL 4-6 Last administered on 05/24/16 18:06; Admin Dose 1 TAB; Start at 14:00 Hydromorphone HCl (Dilaudid) 0.5 mg Q4H PRN IV SEVERE PAIN LEVEL 7-10 Last administered on 05/24/16 08:18; Admin Dose 0.5 MG; Start 05/23/16 at 14:00 Magnesium Hydroxide (Milk Of Mag) 30 ml DAILY PRN PO CONSTIPATION; Start at 14:00 Bisacodyl (Dulcolax) 5 mg DAILY PRN PO CONSTIPATION; Start 05/23/16 at 14:00 Famotidine (Pepcid) 20 mg Q12 PO Last administered on 05/25/16 21:41; Admin Dose 20 MG; Start 05/23/16 at 21:00 Lorazepam 1 mg 1 mg Q8H PRN IV Anxiety; Start 05/23/16 at 14:00 Levofloxacin/ Dextrose (Levaquin 500mg/ D5W 100 ml (Pmx)) 100 ml @ 100 mls/hr Q24H IVPB Last administered on 05/25/16 13:40; Admin Dose 100 MLS/HR; Start at 14:00 Methadone HCl (Methadone Liq) 49 mg DAILY PO ; Start 05/26/16 at 09:00 Enoxaparin Sodium 30 mg 30 mg DAILY SC ; Start 2/25/17 at 09:00 Vancomycin HCl/ Sodium Chloride (Vancocin/NS) 250 ml @ 83.333 mls/ hr Q12H IVPB Last administered on 05/26/16t 03:48; Admin Dose 83.333 MLS/HR; Start at 03:00 ISAIAS POLANCO NP May 26, 2016 08:43
[2016-05-26] MEDS ORDERED: METHADONE (1 MG/ML 5 ML PO UD SYG) PO SCH (09:00)
--- NOTE | 2016-05-26 09:15 | PN ---
Date/Time of Note Date/Time of Note DATE: 05/26/16 TIME: 09:13 Assessment/Plan VTE Prophylaxis VTE Prophylaxis Intervention: LMWH Lines/Catheters IV [facility]from [facility] Saline Lock Urinary Cath still in place: No Assessment/Plan Chief Complaint/Hosp Course 1. Left lower extremity cellulitis. Continue antibiotics as per infectious diseases. Was seen and evaluated by vascular surgery. No evidence of any acute vascular issues. Venous Doppler study negative for any DVT. 2. Heroin abuse, currently on methadone. Continue methadone. 3. Transaminitis. Most probably secondary to underlying hepatitis. Patient has a history of hepatitis C. The patient's hepatitis B serology were also positive. Will monitor. 4. Thrombocytopenia. No evidence of any active bleeding. Continue low-dose Lovenox. Will monitor the platelet count closely. 5. MRSA colonization of the nares. Will start the patient on Bactroban. 6. Fluids, electrolytes, and nutrition. Regular diet as tolerated. 7. DVT prophylaxis. Subcutaneous Lovenox. 8. Gastrointestinal prophylaxis. Histamine 2 receptor blockers. 9. Plan. Continue pain control. Continue elevation of the left lower extremity. Continue antibiotics as per infectious diseases. Case discussed with Dr. Milan. Problems: Subjective 24 Hr Interval Summary Free Text/Dictation Still has significant left lower extremity pain. Remains afebrile. Exam/Review of Systems Vital Signs Vitals Vital Signs Date Time Temp Pulse Resp B/P Pulse Ox O2 Delivery O2 Flow Rate FiO2 05/26/16 07:52 97.8 64 16 95/60 96 05/24/16 23:55 Room Air Intake and Output 05/25/16 05/25/16 05/26/16 15:00 23:00 07:00 Intake Total 1290 ml 840 ml Output Total 300 ml 500 ml Balance 990 ml 340 ml Exam GENERAL: This is a well-built, well-nourished female lying in bed in no apparent distress. HEENT: Normocephalic and atraumatic. Eyes: Sclerae clear, conjunctivae clear. ENT: Nasal septum as well oral mucosa are moist. NECK: Supple, no JVD, no bruits. RESPIRATORY: Bilaterally clear to auscultation, with no adventitious breath sounds. No use of accessory muscle respiration. CARDIAC: Regular rate and rhythm. No murmurs heard. GASTROINTESTINAL: Abdomen soft, nontender, nondistended. Bowel sounds positive in all 4 quadrants. GENITOURINARY: Deferred. EXTREMITIES: No cyanosis, no clubbing. Left lower extremity 2+ edema with areas of ecchymosis [circumferential] in the left lower extremity. No needle tracks. Left lower extremity pedal pulse diminished. Right lower extremity within normal limits. NEUROLOGIC: The patient is awake, alert, and oriented x3. Cranial nerves are grossly intact. Results Result Diagram: 05/25/1642005/25/16 042 Results 24 hrs Laboratory Tests Test 05/25/16 11:20 05/25/16 13:30 Urine Amphetamines Screen POSITIVE Urine Barbiturates Negative Urine Benzodiazepines Screen Negative Urine Cannabinoids Negative Urine Cocaine Screen Negative Urine Opiates Screen Positive Vancomycin Level Trough 7.7 L Medications Medications Current Medications Ondansetron HCl (Zofran Inj) 4 mg Q6H PRN IV NAUSEA AND/OR VOMITING; Start at 14:00 Acetaminophen (Tylenol Tab) 650 mg Q6H PRN PO PAIN LEVEL 1-3 OR FEVER Last administered on 05/24/16 00:27; Admin Dose 650 MG; Start 05/23/16 at 14:00 Acetaminophen/ Hydrocodone Bitart ([place] (5/325)) 1 tab Q6H PRN PO MODERATE PAIN LEVEL 4-6 Last administered on 05/24/16 18:06; Admin Dose 1 TAB; Start at 14:00 Hydromorphone HCl (Dilaudid) 0.5 mg Q4H PRN IV SEVERE PAIN LEVEL 7-10 Last administered on 05/24/16 08:18; Admin Dose 0.5 MG; Start 05/23/16 at 14:00 Magnesium Hydroxide (Milk Of Mag) 30 ml DAILY PRN PO CONSTIPATION; Start at 14:00 Bisacodyl (Dulcolax) 5 mg DAILY PRN PO CONSTIPATION; Start 05/23/16 at 14:00 Famotidine (Pepcid) 20 mg Q12 PO Last administered on 05/25/16 21:41; Admin Dose 20 MG; Start 05/23/16 at 21:00 Lorazepam 1 mg 1 mg Q8H PRN IV Anxiety; Start 05/23/16 at 14:00 Levofloxacin/ Dextrose (Levaquin 500mg/ D5W 100 ml (Pmx)) 100 ml @ 100 mls/hr Q24H IVPB Last administered on 05/25/16 13:40; Admin Dose 100 MLS/HR; Start at 14:00 Methadone HCl (Methadone Liq) 49 mg DAILY PO ; Start 05/26/16 at 09:00 Enoxaparin Sodium 30 mg 30 mg DAILY SC ; Start 05/26/16 at 09:00 Vancomycin HCl/ Sodium Chloride (Vancocin/NS) 250 ml @ 83.333 mls/ hr Q12H IVPB Last administered on 05/26/16 03:48; Admin Dose 83.333 MLS/HR; Start at 03:00 ELI HERNANDEZ NP May 26, 2016 09:15
[2016-05-26] MEDS: FAMOTIDINE 20 MG TAB PO SCH ×2 (09:21→20:25)
[2016-05-26] MEDS: ENOXAPARIN 30 MG/0.3 ML SYG SC SCH (09:26)
[2016-05-26 10:00] LABS: ADD SCAN DIFF NO
[2016-05-26 10:05] LABS: BASOPHILS % 0.5 % (0.0-2.0); EOSINOPHILS # 0.1 10^3/ul (0.0-0.5); EOSINOPHILS % 1.3 % (0.0-7.0); HEMATOCRIT 32.9 % (37.0-47.0); HEMOGLOBIN 11.1 g/dl (12.0-16.0); LYMPHOCYTES # 1.1 10^3/ul (0.8-2.9); LYMPHOCYTES % 14.3 % (15.0-51.0); MEAN CORPUSCULAR HEMOGLOBIN 31.9 pg (29.0-33.0); MEAN CORPUSCULAR HGB CONC 33.7 g/dl (32.0-37.0); MEAN CORPUSCULAR VOLUME 94.5 fl (82.0-101.0); MEAN PLATELET VOLUME 11.3 fl (7.4-10.4); MONOCYTE # 0.6 10^3/ul (0.3-0.9); MONOCYTES % 7.6 % (0.0-11.0); NEUTROPHIL # 5.7 10^3/ul (1.6-7.5); PLATELET COUNT 153 10^3/UL (140-415); RED BLOOD COUNT 3.48 10^6/ul (4.20-5.40); RED CELL DISTRIBUTION WIDTH 12.7 % (11.5-14.5); WHITE BLOOD COUNT 7.6 10^3/ul (4.8-10.8)
[2016-05-26 10:15] LABS: ALBUMIN 2.9 g/dl (3.3-4.9); POTASSIUM 4.1 mmol/L (3.5-5.1)
[2016-05-26 10:16] LABS: MAGNESIUM 1.9 mg/dl (1.7-2.5); PHOSPHORUS 4.2 mg/dl (2.5-4.9)
[2016-05-26 10:17] LABS: ALBUMIN/GLOBULIN RATIO 0.85; BILIRUBIN,INDIRECT 0.3 mg/dl (0-1.1); BILIRUBIN,TOTAL 0.3 mg/dl (0.2-1.3); CREATININE 0.59 mg/dl (0.44-1.00); TOTAL PROTEIN 6.3 g/dl (6.1-8.1)
[2016-05-26 10:18] LABS: CALCIUM 8.4 mg/dl (8.4-10.2)
[2016-05-26] MEDS: MUPIROCIN 2% 22 GM OINT TOP SCH ×2 (12:23→20:25)
[2016-05-26] MEDS: METHADONE (1 MG/ML 5 ML PO UD SYG) PO SCH (12:26)
[2016-05-26] MEDS: CEFTRIAXONE 2 GM/50 ML (PMX) 50 ML IVPB SCH (15:12)
[2016-05-26 20:00] VITALS: BP 110/69; RESP 17
[2016-05-26] MEDS: BISACODYL (EC) 5 MG TAB PO PRN (23:11)
[2016-05-27] MEDS: VANCOMYCIN 1.5 GM in SOD CHLORIDE 0.9% 250 ML IVPB SCH ×2 (02:38→16:19)
[2016-05-27] MEDS: HYDROCODONE/APAP (5/325) TAB PO PRN ×2 (02:43→23:17)
[2016-05-27 05:51] LABS: ADD SCAN DIFF NO
[2016-05-27 05:56] LABS: BASOPHILS % 0.4 % (0.0-2.0); EOSINOPHILS # 0.1 10^3/ul (0.0-0.5); HEMATOCRIT 30.8 % (37.0-47.0); HEMOGLOBIN 10.4 g/dl (12.0-16.0); LYMPHOCYTES # 1.6 10^3/ul (0.8-2.9); LYMPHOCYTES % 23.1 % (15.0-51.0); MEAN CORPUSCULAR HEMOGLOBIN 31.9 pg (29.0-33.0); MEAN CORPUSCULAR HGB CONC 33.8 g/dl (32.0-37.0); MEAN CORPUSCULAR VOLUME 94.5 fl (82.0-101.0); MEAN PLATELET VOLUME 11.9 fl (7.4-10.4); MONOCYTE # 0.6 10^3/ul (0.3-0.9); MONOCYTES % 8.3 % (0.0-11.0); NEUTROPHIL # 4.6 10^3/ul (1.6-7.5); NEUTROPHILS % 65.5 % (39.0-77.0); PLATELET COUNT 140 10^3/UL (140-415); RED BLOOD COUNT 3.26 10^6/ul (4.20-5.40); RED CELL DISTRIBUTION WIDTH 12.4 % (11.5-14.5)
[2016-05-27 06:07] LABS: ALBUMIN 2.8 g/dl (3.3-4.9); POTASSIUM 4.3 mmol/L (3.5-5.1)
[2016-05-27 06:09] LABS: CREATININE 0.55 mg/dl (0.44-1.00)
[2016-05-27 06:10] LABS: ALBUMIN/GLOBULIN RATIO 0.71; BILIRUBIN,INDIRECT 0.1 mg/dl (0-1.1); BILIRUBIN,TOTAL 0.1 mg/dl (0.2-1.3); TOTAL PROTEIN 6.7 g/dl (6.1-8.1)
[2016-05-27 07:08] LABS: PHOSPHORUS 4.4 mg/dl (2.5-4.9)
--- NOTE | 2016-05-27 08:38 | PN ---
Date/Time of Note Date/Time of Note DATE: 05/27/16 TIME: 08:38 Assessment/Plan VTE Prophylaxis VTE Prophylaxis Intervention: LMWH Lines/Catheters IV [facility]ter Type (from [facility]): Saline Lock Urinary Cath still in place: No Assessment/Plan Chief Complaint/Hosp Course 1. Left lower extremity cellulitis. Continue antibiotics as per infectious diseases. Was seen and evaluated by vascular surgery. No evidence of any acute vascular issues. Venous Doppler study negative for any DVT. 2. Heroin abuse, currently on methadone. Continue methadone. 3. Transaminitis. Most probably secondary to underlying hepatitis. Patient has a history of hepatitis C. The patient's hepatitis B serology were also positive. Will monitor. 4. Thrombocytopenia. Resolved. Continue low-dose Lovenox. Will monitor the platelet count closely. 5. 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 6. Fluids, electrolytes, and nutrition. Regular diet as tolerated. 7. DVT prophylaxis. Subcutaneous Lovenox. 8. Gastrointestinal prophylaxis. Histamine 2 receptor blockers. 9. Plan. Continue pain control. Continue elevation of the left lower extremity. Continue antibiotics as per infectious diseases. Case discussed with Dr. Milan. Problems: Subjective 24 Hr Interval Summary Free Text/Dictation Still has some pain in the LLE. Remains afebrile. Exam/Review of Systems Vital Signs Vitals Vital Signs Date Time Temp Pulse Resp B/P Pulse Ox O2 Delivery O2 Flow Rate FiO2 05/26/16 20:00 98.8 75 17 110/69 96 05/24/16 23:55 Room Air Intake and Output 05/26/16 05/26/16 05/27/16 15:00 23:00 07:00 Intake Total 1700 ml 1050 ml Output Total 1250 ml Balance 1700 ml -200 ml Exam GENERAL: This is a well-built, well-nourished female lying in bed in no apparent distress. HEENT: Normocephalic and atraumatic. Eyes: Sclerae clear, conjunctivae clear. ENT: Nasal septum as well oral mucosa are moist. NECK: Supple, no JVD, no bruits. RESPIRATORY: Bilaterally clear to auscultation, with no adventitious breath sounds. No use of accessory muscle respiration. CARDIAC: Regular rate and rhythm. No murmurs heard. GASTROINTESTINAL: Abdomen soft, nontender, nondistended. Bowel sounds positive in all 4 quadrants. GENITOURINARY: Deferred. EXTREMITIES: No cyanosis, no clubbing. Left lower extremity 2+ edema with areas of ecchymosis [circumferential] in the left lower extremity. No needle tracks. Left lower extremity pedal pulse diminished. Right lower extremity within normal limits. NEUROLOGIC: The patient is awake, alert, and oriented x3. Cranial nerves are grossly intact. Results Result Diagram: 05/27/16 0451 05/27/16 0500 Results 24 hrs Laboratory Tests Test 05/26/16 09:45 05/27/16 04:51 05/27/16 05:00 05/27/16 05:09 Alanine Aminotransferase (ALT/SGPT) 53 55 Albumin 2.9 L 2.8 L Albumin/Globulin Ratio 0.85 0.71 Alkaline Phosphatase 153 H 185 H Anion Gap 13 17 H Aspartate Amino Transf (AST/SGOT) 77 H 96 H Basophils # 0.0 0.0 Basophils % 0.5 0.4 Blood Urea Nitrogen 9 8 Calcium Level 8.4 8.0 L Carbon Dioxide Level 26 21 Chloride Level 102 102 Creatinine 0.59 0.55 Direct Bilirubin 0.00 0.00 Eosinophils # 0.1 0.1 Eosinophils % 1.3 2.0 Globulin 3.40 H 3.90 H Glucose Level 107 78 Hematocrit 32.9 L 30.8 L Hemoglobin 11.1 L 10.4 L Indirect Bilirubin 0.3 0.1 Lymphocytes # 1.1 1.6 Lymphocytes % 14.3 L 23.1 Magnesium Level 1.9 2.0 Mean Corpuscular Hemoglobin 31.9 31.9 Mean Corpuscular Hemoglobin Concent 33.7 33.8 Mean Corpuscular Volume 94.5 94.5 Mean Platelet Volume 11.3 H 11.9 H Monocytes # 0.6 0.6 Monocytes % 7.6 8.3 Neutrophils # 5.7 4.6 Neutrophils % 75.0 65.5 Nucleated Red Blood Cells # 0.0 0.0 Nucleated Red Blood Cells % 0.0 0.0 Phosphorus Level 4.2 4.4 Platelet Count 153 # 140 Potassium Level 4.1 4.3 Red Blood Count 3.48 L 3.26 L Red Cell Distribution Width 12.7 12.4 Sodium Level 137 136 Total Bilirubin 0.3 0.1 L Total Protein 6.3 6.7 White Blood Count 7.6 7.0 Medications Medications Current Medications Ondansetron HCl (Zofran Inj) 4 mg Q6H PRN IV NAUSEA AND/OR VOMITING; Start at 14:00 Acetaminophen (Tylenol Tab) 650 mg Q6H PRN PO PAIN LEVEL 1-3 OR FEVER Last administered on 05/24/16 00:27; Admin Dose 650 MG; Start 05/23/16 at 14:00 Acetaminophen/ Hydrocodone Bitart ([place] (5/325)) 1 tab Q6H PRN PO MODERATE PAIN LEVEL 4-6 Last administered on 05/27/16 02:43; Admin Dose 1 TAB; Start at 14:00 Hydromorphone HCl (Dilaudid) 0.5 mg Q4H PRN IV SEVERE PAIN LEVEL 7-10 Last administered on 05/24/16 08:18; Admin Dose 0.5 MG; Start 05/23/16 at 14:00 Magnesium Hydroxide (Milk Of Mag) 30 ml DAILY PRN PO CONSTIPATION Last administered on 05/26/16 23:10; Admin Dose 30 ML; Start 05/23/16 at 14:00 Bisacodyl (Dulcolax) 5 mg DAILY PRN PO CONSTIPATION Last administered on 23:11; Admin Dose 5 MG; Start 05/23/16 at 14:00 Famotidine (Pepcid) 20 mg Q12 PO Last administered on 05/26/16 20:25; Admin Dose 20 MG; Start 05/23/16 at 21:00 Lorazepam (Ativan) 1 mg Q8H PRN IV Anxiety; Start 05/23/16 at 14:00 Enoxaparin Sodium 30 mg 30 mg DAILY SC Last administered on 05/26/16 09:26; Admin Dose 30 MG; Start 05/26/16 at 09:00 Vancomycin HCl/ Sodium Chloride (Vancocin/NS) 250 ml @ 83.333 mls/ hr Q12H IVPB Last administered on 05/27/16 02:38; Admin Dose 83.333 MLS/HR; Start at 03:00 Mupirocin (Bactroban) 1 applic BID TOP Last administered on 05/26/16 20:25; Admin Dose 1 APPLIC; Start 05/26/16 at 10:30 Methadone HCl 49 mg 49 mg DAILY PO Last administered on 05/26/16 12:26; Admin Dose 49 MG; Start 05/26/16 at 11:00 Ceftriaxone Sodium (Rocephin) 50 ml @ 100 mls/hr Q24H IVPB Last administered on 05/26/16 15:12; Admin Dose 100 MLS/HR; Start 05/26/16 at 14:00 Miscellaneous Information (*Rx Drug Level Order Reminder*) VANCOMYCIN TROUGH AT 1400 ONCE ONCE XX ; Start 05/27/16 at 14:00; Stop 05/27/16 at 14:01 ELI HERNANDEZ NP May 27, 2016 08:38
[2016-05-27 08:39] VITALS: BP 99/58; RESP 16
[2016-05-27] MEDS ORDERED: METHADONE (1 MG/ML 5 ML PO UD SYG) PO SCH ×2 (09:00)
[2016-05-27] MEDS: ENOXAPARIN 30 MG/0.3 ML SYG SC SCH (09:39)
[2016-05-27] MEDS: METHADONE (1 MG/ML 5 ML PO UD SYG) PO SCH (09:40)
[2016-05-27] MEDS: MUPIROCIN 2% 22 GM OINT TOP SCH ×2 (09:40→21:41)
[2016-05-27] MEDS: FAMOTIDINE 20 MG TAB PO SCH ×2 (09:40→21:41)
[2016-05-27] MEDS: CEFTRIAXONE 2 GM/50 ML (PMX) 50 ML IVPB SCH (15:14)
--- NOTE | 2016-05-27 17:45 | CONS ---
Date/Time of Note Date/Time of Note DATE: 05/27/16 TIME: 17:41 Assessment/Plan Assessment/Plan Chief Complaint/Hosp Course D PROGRESS NOTE CURRENT ABX=> Vanco IV#5 + Ceftriaxone #2 + Bactroban s/p Levaquin #5 days + Bactroban 24H INTERVAL SUMMARY * Clinically about the same == slow improvement * Afebrile, VSS, NAD * (+)MRSA Nares Screen PHYSICAL EXAMINATION: GENERAL: VSS, NAD HEENT: Unremarkable NECK: Supple, trachea midline. CHEST: Rise symmetrical, without dyspnea on observation HEART: Pulse RRR ABDOMEN: Soft, benign EXTREMITIES: Warm, LLEXT with demarcated erythema up to thigh, (+)edema ankle/ pedal/calf w/healing open lesions ID ASSESSMENT 50 yo F w/PMHx IVDU = heroin, now on Methadone admit with: 1. Acute LLEXT cellulitis 2. Memory deficit, so stated by patient 3. Tobaccoism - quit x 3 mos 4. Chronic pain issues: Methadone 5. H/O Polysubstance abuse: Former Heroin/Former ETOH (+)MRSA Nares -> Bactroban INVASIVES: PIV ABX ALLERGY: KNDA CURRENT ABX: => Vanco IV #5 + Ceftriaxone #2 dc Levaquin ID RECOMMENDATIONS 1. Continue current ABX needs IV Vanco until erythema/edema retreats to about 75 % of presentation. * Levaquin changed to Ceftriaxone IV => RATIONALE: Avoid Fluoroquinolones when Methadone onboard due to both may prolong QT interval. * Anticipate DC home on PO Bactrim DS 1 TAB PO BID x 10 days + Keflex 500mg PO TID x 10 days = when cleared by primary 2. Bactroban ointment -> nares BID onboard for MRSA decolonization 3. Rx Hibiclens bath QPM w/attention to hand hygiene while on inpatient status 4. Continued smoking cessation strongly advocated . Problems: Consultation Date/Type/Reason Admit Date/Time May 23, 2016 at 11:26 Exam/Review of Systems Vital Signs Vitals Vital Signs Date Time Temp Pulse Resp B/P Pulse Ox O2 Delivery O2 Flow Rate FiO2 05/27/16 08:39 97.9 62 16 99/58 96 05/24/16 23:55 Room Air Intake and Output 05/26/16 05/26/16 05/27/16 15:00 23:00 07:00 Intake Total 1700 ml 1050 ml Output Total 1250 ml Balance 1700 ml -200 ml Results Result Diagram: 05/27/16 0451 05/27/16 0500 Results 24 hrs Laboratory Tests Test 05/27/16 04:51 05/27/16 05:00 05/27/16 05:09 05/27/16 09:46 Basophils # 0.0 Basophils % 0.4 Eosinophils # 0.1 Eosinophils % 2.0 Hematocrit 30.8 L Hemoglobin 10.4 L Lymphocytes # 1.6 Lymphocytes % 23.1 Mean Corpuscular Hemoglobin 31.9 Mean Corpuscular Hemoglobin Concent 33.8 Mean Corpuscular Volume 94.5 Mean Platelet Volume 11.9 H Monocytes # 0.6 Monocytes % 8.3 Neutrophils # 4.6 Neutrophils % 65.5 Nucleated Red Blood Cells # 0.0 Nucleated Red Blood Cells % 0.0 Platelet Count 140 Red Blood Count 3.26 L Red Cell Distribution Width 12.4 White Blood Count 7.0 Alanine Aminotransferase (ALT/SGPT) 55 Albumin 2.8 L Albumin/Globulin Ratio 0.71 Alkaline Phosphatase 185 H Anion Gap 17 H Aspartate Amino Transf (AST/SGOT) 96 H Blood Urea Nitrogen 8 Calcium Level 8.0 L Carbon Dioxide Level 21 Chloride Level 102 Creatinine 0.55 Direct Bilirubin 0.00 Globulin 3.90 H Glucose Level 78 Indirect Bilirubin 0.1 Potassium Level 4.3 Sodium Level 136 Total Bilirubin 0.1 L Total Protein 6.7 Magnesium Level 2.0 Phosphorus Level 4.4 Lab Scanned Report REFERENCE LAB Test 05/27/16 13:55 Vancomycin Level Trough 14.7 Medications Medications Current Medications Ondansetron HCl (Zofran Inj) 4 mg Q6H PRN IV NAUSEA AND/OR VOMITING; Start at 14:00 Acetaminophen (Tylenol Tab) 650 mg Q6H PRN PO PAIN LEVEL 1-3 OR FEVER Last administered on 05/24/16 00:27; Admin Dose 650 MG; Start 05/23/16 at 14:00 Acetaminophen/ Hydrocodone Bitart ([place] (5/325)) 1 tab Q6H PRN PO MODERATE PAIN LEVEL 4-6 Last administered on 05/27/16 02:43; Admin Dose 1 TAB; Start at 14:00 Hydromorphone HCl (Dilaudid) 0.5 mg Q4H PRN IV SEVERE PAIN LEVEL 7-10 Last administered on 05/24/16 08:18; Admin Dose 0.5 MG; Start 05/23/16 at 14:00 Magnesium Hydroxide (Milk Of Mag) 30 ml DAILY PRN PO CONSTIPATION Last administered on 05/26/16 23:10; Admin Dose 30 ML; Start 05/23/16 at 14:00 Bisacodyl (Dulcolax) 5 mg DAILY PRN PO CONSTIPATION Last administered on 23:11; Admin Dose 5 MG; Start 05/23/16 at 14:00 Famotidine (Pepcid) 20 mg Q12 PO Last administered on 05/27/16 09:40; Admin Dose 20 MG; Start 05/23/16 at 21:00 Lorazepam (Ativan) 1 mg Q8H PRN IV Anxiety; Start 05/23/16 at 14:00 Enoxaparin Sodium 30 mg 30 mg DAILY SC Last administered on 05/27/16 09:39; Admin Dose 30 MG; Start 05/26/16 at 09:00 Vancomycin HCl/ Sodium Chloride (Vancocin/NS) 250 ml @ 83.333 mls/ hr Q12H IVPB Last administered on 05/27/16 16:19; Admin Dose 83.333 MLS/HR; Start at 03:00 Mupirocin (Bactroban) 1 applic BID TOP Last administered on 05/27/16 09:40; Admin Dose 1 APPLIC; Start 05/26/16 at 10:30 Methadone HCl 49 mg 49 mg DAILY PO Last administered on 05/27/16 09:40; Admin Dose 49 MG; Start 05/26/16 at 11:00 Ceftriaxone Sodium (Rocephin) 50 ml @ 100 mls/hr Q24H IVPB Last administered on 05/27/16 15:14; Admin Dose 100 MLS/HR; Start 05/26/16 at 14:00 ISAIAS POLANCO [employer] May 27, 2016 17:45
[2016-05-27 19:57] VITALS: BP 105/67; RESP 18
[2016-05-28] MEDS: VANCOMYCIN 1.5 GM in SOD CHLORIDE 0.9% 250 ML IVPB SCH ×2 (03:21→18:15)
[2016-05-28 05:55] LABS: ADD SCAN DIFF NO
[2016-05-28 05:59] LABS: ABNORMAL IP MESSAGE 1; HEMATOCRIT 33.3 % (37.0-47.0); HEMOGLOBIN 11.1 g/dl (12.0-16.0); MEAN CORPUSCULAR HEMOGLOBIN 31.8 pg (29.0-33.0); MEAN CORPUSCULAR HGB CONC 33.3 g/dl (32.0-37.0); MEAN CORPUSCULAR VOLUME 95.4 fl (82.0-101.0); MEAN PLATELET VOLUME 11.9 fl (7.4-10.4); RED BLOOD COUNT 3.49 10^6/ul (4.20-5.40); RED CELL DISTRIBUTION WIDTH 12.2 % (11.5-14.5); WHITE BLOOD COUNT 5.6 10^3/ul (4.8-10.8)
[2016-05-28 06:17] LABS: PLATELET COUNT 93 10^3/UL (140-415)
[2016-05-28 06:27] LABS: ALBUMIN 2.8 g/dl (3.3-4.9)
[2016-05-28 06:28] LABS: POTASSIUM 4.5 mmol/L (3.5-5.1)
[2016-05-28 06:30] LABS: ALBUMIN/GLOBULIN RATIO 0.7; BILIRUBIN,INDIRECT 0.1 mg/dl (0-1.1); BILIRUBIN,TOTAL 0.1 mg/dl (0.2-1.3); CREATININE 0.58 mg/dl (0.44-1.00); TOTAL PROTEIN 6.8 g/dl (6.1-8.1)
[2016-05-28 06:31] LABS: CALCIUM 8.4 mg/dl (8.4-10.2)
[2016-05-28 07:24] VITALS: BP 112/70; RESP 18
[2016-05-28 07:48] LABS: PHOSPHORUS 4.1 mg/dl (2.5-4.9)
[2016-05-28 08:08] VITALS: BP 108/68; RESP 18
[2016-05-28] MEDS: FAMOTIDINE 20 MG TAB PO SCH ×2 (09:08→20:32)
[2016-05-28] MEDS: ENOXAPARIN 30 MG/0.3 ML SYG SC SCH (09:08)
[2016-05-28] MEDS: MUPIROCIN 2% 22 GM OINT TOP SCH ×2 (09:09→20:33)
[2016-05-28 09:23] LABS: EOSINOPHILS # 0.2 10^3/ul (0.0-0.5); LYMPHOCYTES # 1.3 10^3/ul (0.8-2.9); MONOCYTE # 0.4 10^3/ul (0.3-0.9); NEUTROPHIL # 3.5 10^3/ul (1.6-7.5)
[2016-05-28] MEDS: METHADONE (1 MG/ML 5 ML PO UD SYG) PO SCH (09:53)
[2016-05-28] MEDS ORDERED: BACTDS PO (11:07)
[2016-05-28] MEDS ORDERED: HYDR-3498 PO (11:07)
[2016-05-28] MEDS ORDERED: CEPH500C PO (11:07)
[2016-05-28] MEDS ORDERED: MUPI22OI2 TOP (11:07)
--- NOTE | 2016-05-28 13:14 | PN ---
Date/Time of Note Date/Time of Note DATE: 05/28/16 TIME: 13:07 Assessment/Plan VTE Prophylaxis VTE Prophylaxis Intervention: LMWH Lines/Catheters IV Catheter Type (from [place]): [place] Urinary Cath still in place: No Assessment/Plan Chief Complaint/Hosp Course 1. Left lower extremity cellulitis. cont on abx per ID recs. Venous Doppler study negative for any DVT. Patient seen by vascular surgeon. no plan for surgical intervention 2. hx Heroin abuse Continue methadone. 3. Transaminitis. Likely secondary to underlying hepatitis B and C. Will monitor. 4. Thrombocytopenia. Resolved. monitor platelets 5. 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 DISPO/PLAN: cont on abx. await clinical improvement of LLE. d/c when cleared by consultants Discussed plan of care with Dr. Joshua Problems: Subjective 24 Hr Interval Summary Free Text/Dictation no s/s of distress. reports less swelling on left lower extremity Exam/Review of Systems Vital Signs Vitals Vital Signs Date Time Temp Pulse Resp B/P Pulse Ox O2 Delivery O2 Flow Rate FiO2 05/28/16 08:08 97.8 63 18 108/68 99 05/24/16 23:55 Room Air Intake and Output 05/27/16 05/27/16 05/28/16 14:59 22:59 06:59 Intake Total 300 ml 850 ml Balance 300 ml 850 ml Exam General: No acute signs or symptoms of distress Eyes: pupils equal round, Anicteric sclera Neck: Supple nontender, no JVD Cardiac: S1, S2 auscultated, regular rhythm and rate Pulmonary: No coarse rhonchi or breathing auscultated GI: Abdomen soft nontender nondistended, bowel sounds active Extremities: edema BLE, more noted on left lower extremity Skin: erythema on left lower extremity Neurologic: Alert to person place and time and situation Results Result Diagram: 05/28/16 0430 05/28/16 0430 Results 24 hrs Laboratory Tests Test 05/27/16 13:55 05/28/16 04:30 Vancomycin Level Trough 14.7 Alanine Aminotransferase (ALT/SGPT) 53 Albumin 2.8 L Albumin/Globulin Ratio 0.70 Alkaline Phosphatase 172 H Anion Gap 16 Aspartate Amino Transf (AST/SGOT) 95 H Band Neutrophils % 2.0 Basophils # Basophils % Blood Urea Nitrogen 8 Calcium Level 8.4 Carbon Dioxide Level 26 Chloride Level 103 Creatinine 0.58 Differential Comment MANUAL DIFF Direct Bilirubin 0.00 Eosinophils # 0.2 Eosinophils % 4.0 Globulin 4.00 H Glucose Level 80 Hematocrit 33.3 L Hemoglobin 11.1 L Indirect Bilirubin 0.1 Lymphocytes # 1.3 Lymphocytes % 24.0 Magnesium Level 2.0 Mean Corpuscular Hemoglobin 31.8 Mean Corpuscular Hemoglobin Concent 33.3 Mean Corpuscular Volume 95.4 Mean Platelet Volume 11.9 H Monocytes # 0.4 Monocytes % 8.0 Neutrophils # 3.5 Neutrophils % 62.0 Nucleated Red Blood Cells # Nucleated Red Blood Cells % Phosphorus Level 4.1 Platelet Count 93 #L Potassium Level 4.5 Red Blood Count 3.49 L Red Cell Distribution Width 12.2 Sodium Level 140 Total Bilirubin 0.1 L Total Protein 6.8 White Blood Count 5.6 Medications Medications Current Medications Ondansetron HCl (Zofran Inj) 4 mg Q6H PRN IV NAUSEA AND/OR VOMITING; Start at 14:00 Acetaminophen (Tylenol Tab) 650 mg Q6H PRN PO PAIN LEVEL 1-3 OR FEVER Last administered on 05/24/16 00:27; Admin Dose 650 MG; Start 05/23/16 at 14:00 Acetaminophen/ Hydrocodone Bitart ([place] (5/325)) 1 tab Q6H PRN PO MODERATE PAIN LEVEL 4-6 Last administered on 05/27/16 23:17; Admin Dose 1 TAB; Start at 14:00 Hydromorphone HCl (Dilaudid) 0.5 mg Q4H PRN IV SEVERE PAIN LEVEL 7-10 Last administered on 05/24/16 08:18; Admin Dose 0.5 MG; Start 05/23/16 at 14:00 Magnesium Hydroxide (Milk Of Mag) 30 ml DAILY PRN PO CONSTIPATION Last administered on 05/26/16 23:10; Admin Dose 30 ML; Start 05/23/16 at 14:00 Bisacodyl (Dulcolax) 5 mg DAILY PRN PO CONSTIPATION Last administered on 23:11; Admin Dose 5 MG; Start 05/23/16 at 14:00 Famotidine (Pepcid) 20 mg Q12 PO Last administered on 05/28/16 09:08; Admin Dose 20 MG; Start 05/23/16 at 21:00 Lorazepam (Ativan) 1 mg Q8H PRN IV Anxiety; Start 05/23/16 at 14:00 Enoxaparin Sodium 30 mg 30 mg DAILY SC Last administered on 05/28/16 09:08; Admin Dose 30 MG; Start 05/26/16 at 09:00 Vancomycin HCl/ Sodium Chloride (Vancocin/NS) 250 ml @ 83.333 mls/ hr Q12H IVPB Last administered on 05/28/16 03:21; Admin Dose 83.333 MLS/HR; Start at 03:00 Mupirocin (Bactroban) 1 applic BID TOP Last administered on 05/28/16 09:09; Admin Dose 1 APPLIC; Start 05/26/16 at 10:30 Methadone HCl 49 mg 49 mg DAILY PO Last administered on 05/28/16 09:53; Admin Dose 49 MG; Start 05/26/16 at 11:00 Ceftriaxone Sodium (Rocephin) 50 ml @ 100 mls/hr Q24H IVPB Last administered on 05/27/16 15:14; Admin Dose 100 MLS/HR; Start 05/26/16 at 14:00 DENIZ BREAUX May 28, 2016 13:13
--- NOTE | 2016-05-28 14:16 | PN ---
DATE: 05/28/2016 SUBJECTIVE: No acute events. The patient is alert, lying comfortably in bed. Afebrile. VITAL SIGNS: Stable. ANTIMICROBIALS: She is on IV vancomycin and Rocephin. MICROBIOLOGY: All cultures have been negative. Nares swab positive for MRSA. Patient is on Bactro ban. PHYSICAL EXAMINATION: GENERAL: Well-developed, middle-aged woman who is alert, in no distress. HEENT: Head atraumatic, normocephalic. Sclerae anicteric. Buccal mucosa pink. NECK: Supple, trachea midline. CHEST: Rise symmetrical. Breath sounds clear. HEART: S1, S2. ABDOMEN: Soft. Bowel sounds present. EXTREMITIES: Left lower extremity markedly improved below knee, still with significant erythema, bu t swelling is much better. However, there is increased erythema on the lateral part of her left thi gh. ASSESSMENT: 1. Left lower extremity cellulitis. 2. History of heroin abuse, on methadone. 3. Methicillin-resistant Staphylococcus aureus nares colonization. PLAN: Patient remains stable. We will continue treating her with current antimicrobials. Continue left lower extremity Elevation. Dictated By: SANTIAGO RAMON BRIDGE MANAGER for MALINDA JUNG MD NI/NTS Conf#: [id number] DID#: [id number]
[2016-05-28] MEDS: CEFTRIAXONE 2 GM/50 ML (PMX) 50 ML IVPB SCH (14:31)
[2016-05-28] MEDS: HYDROCODONE/APAP (5/325) TAB PO PRN (20:32)
[2016-05-28 20:47] VITALS: BP 108/62; RESP 16
[2016-05-29] MEDS: VANCOMYCIN 1.5 GM in SOD CHLORIDE 0.9% 250 ML IVPB SCH ×3 (02:35→16:45)
[2016-05-29] MEDS: MUPIROCIN 2% 22 GM OINT TOP SCH ×2 (09:00→20:36)
[2016-05-29] MEDS: FAMOTIDINE 20 MG TAB PO SCH ×2 (09:00→20:36)
[2016-05-29] MEDS: ENOXAPARIN 30 MG/0.3 ML SYG SC SCH (09:02)
[2016-05-29] MEDS: METHADONE (1 MG/ML 5 ML PO UD SYG) PO SCH (09:51)
--- NOTE | 2016-05-29 11:48 | CONS ---
Date/Time of Note Date/Time of Note DATE: 05/29/16 TIME: 11:46 Assessment/Plan Assessment/Plan Chief Complaint/Hosp Course SUBJECTIVE: No acute events. The patient is alert, lying comfortably in bed. Afebrile. ANTIMICROBIALS: IV vancomycin and Rocephin. MICROBIOLOGY: All cultures have been negative. Nares swab positive for MRSA. Patient is on Bactroban. PHYSICAL EXAMINATION: GENERAL: Well-developed, middle-aged woman who is alert, in no distress. HEENT: Head atraumatic, normocephalic. Sclerae anicteric. Buccal mucosa pink. NECK: Supple, trachea midline. CHEST: Rise symmetrical. Breath sounds clear. HEART: S1, S2. ABDOMEN: Soft. Bowel sounds present. EXTREMITIES: Left lower extremity with decreased edema below knee, still with significant erythema, erythema on the lateral part of her left thigh persists. ASSESSMENT: 1. Left lower extremity cellulitis. 2. History of heroin abuse, on methadone. 3. Methicillin-resistant Staphylococcus aureus nares colonization. PLAN: Patient remains stable. LLE still with significant cellulitis. We will continue treating her with current antimicrobials. Continue left lower extremity elevation. DW pt Problems: Consultation Date/Type/Reason Admit Date/Time May 23, 2016 at 11:26 Initial Consult Date Type of Consultation: ID Exam/Review of Systems Vital Signs Vitals Vital Signs Date Time Temp Pulse Resp B/P Pulse Ox O2 Delivery O2 Flow Rate FiO2 05/28/16 20:47 98.0 60 16 108/62 96 Intake and Output 05/28/16 05/28/16 05/29/16 15:00 23:00 07:00 Intake Total 720 ml 1200 ml Output Total 1100 ml Balance 720 ml 100 ml Results Result Diagram: 05/28/16 0430 05/28/16 0430 Medications Medications Current Medications Ondansetron HCl (Zofran Inj) 4 mg Q6H PRN IV NAUSEA AND/OR VOMITING; Start at 14:00 Acetaminophen (Tylenol Tab) 650 mg Q6H PRN PO PAIN LEVEL 1-3 OR FEVER Last administered on 05/24/16t 00:27; Admin Dose 650 MG; Start 05/23/16 at 14:00 Acetaminophen/ Hydrocodone Bitart ([place] (5/325)) 1 tab Q6H PRN PO MODERATE PAIN LEVEL 4-6 Last administered on 05/28/16 20:32; Admin Dose 1 TAB; Start at 14:00 Hydromorphone HCl (Dilaudid) 0.5 mg Q4H PRN IV SEVERE PAIN LEVEL 7-10 Last administered on 05/24/16 08:18; Admin Dose 0.5 MG; Start 05/23/16 at 14:00 Magnesium Hydroxide (Milk Of Mag) 30 ml DAILY PRN PO CONSTIPATION Last administered on 05/26/16 23:10; Admin Dose 30 ML; Start 05/23/16 at 14:00 Bisacodyl (Dulcolax) 5 mg DAILY PRN PO CONSTIPATION Last administered on 23:11; Admin Dose 5 MG; Start 05/23/16 at 14:00 Famotidine (Pepcid) 20 mg Q12 PO Last administered on 05/29/16 09:00; Admin Dose 20 MG; Start 05/23/16 at 21:00 Lorazepam (Ativan) 1 mg Q8H PRN IV Anxiety; Start 05/23/16 at 14:00 Enoxaparin Sodium 30 mg 30 mg DAILY SC Last administered on 05/29/16 09:02; Admin Dose 30 MG; Start 05/26/16 at 09:00 Vancomycin HCl/ Sodium Chloride (Vancocin/NS) 250 ml @ 83.333 mls/ hr Q12H IVPB Last administered on 05/29/16 02:35; Admin Dose 83.333 MLS/HR; Start at 03:00 Mupirocin (Bactroban) 1 applic BID TOP Last administered on 05/29/16 09:00; Admin Dose 1 APPLIC; Start 05/26/16 at 10:30 Methadone HCl 49 mg 49 mg DAILY PO Last administered on 05/29/16 09:51; Admin Dose 49 MG; Start 05/26/16 at 11:00 Ceftriaxone Sodium (Rocephin) 50 ml @ 100 mls/hr Q24H IVPB Last administered on 05/28/16 14:31; Admin Dose 100 MLS/HR; Start 05/26/16 at 14:00 Miscellaneous Information (*Rx Drug Level Order Reminder*) VANCOMYCIN TROUGH 05/30 AT 0200 ONCE ONCE XX ; Start 05/30/16 at 02:00; Stop 05/30/16 at 02:01 SANTIAGO RAMON NP May 29, 2016 11:48
--- NOTE | 2016-05-29 12:16 | PN ---
Date/Time of Note Date/Time of Note DATE: 05/29/16 TIME: 12:14 Assessment/Plan VTE Prophylaxis VTE Prophylaxis Intervention: LMWH Lines/Catheters IV Catheter Type (from Nrs): Peripheral IV Urinary Cath still in place: No Assessment/Plan Chief Complaint/Hosp Course ASSESSMENT/PLAN 1. Left lower extremity cellulitis. cont on abx per ID recs. Venous Doppler study negative for any DVT. Patient seen by vascular surgeon. no plan for surgical intervention. appears to be improving at present 2. hx Heroin abuse Continue methadone. 3. Transaminitis. Likely secondary to underlying hepatitis B and C. Will monitor. 4. Thrombocytopenia. Resolved. monitor platelets 5. 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 DISPO/PLAN: Still with swelling and erythema LLE. cont on abx. d/c when medically stable and cleared by consultants Discussed plan of care with Dr. Joshua Problems: Subjective 24 Hr Interval Summary Free Text/Dictation no s/s of distress. still with pain reported on left lower extremity Exam/Review of Systems Vital Signs Vitals Vital Signs Date Time Temp Pulse Resp B/P Pulse Ox O2 Delivery O2 Flow Rate FiO2 05/28/16 20:47 98.0 60 16 108/62 96 Intake and Output 05/28/16 05/28/16 05/29/16 15:00 23:00 07:00 Intake Total 720 ml 1200 ml Output Total 1100 ml Balance 720 ml 100 ml Exam General: No acute signs or symptoms of distress Eyes: pupils equal round, Anicteric sclera Neck: Supple nontender, no JVD Cardiac: S1, S2 auscultated, regular rhythm and rate Pulmonary: No coarse rhonchi or breathing auscultated GI: Abdomen soft nontender nondistended, bowel sounds active Extremities: edema BLE, more noted on left lower extremity Skin: erythema on left lower extremity Neurologic: Alert to person place and time and situation Results Result Diagram: 05/28/1642905/28/16429 Medications Medications Current Medications Ondansetron HCl (Zofran Inj) 4 mg Q6H PRN IV NAUSEA AND/OR VOMITING; Start at 14:00 Acetaminophen (Tylenol Tab) 650 mg Q6H PRN PO PAIN LEVEL 1-3 OR FEVER Last administered on 05/24/16t 00:27; Admin Dose 650 MG; Start 05/23/16 at 14:00 Acetaminophen/ Hydrocodone Bitart ([place] (5/325)) 1 tab Q6H PRN PO MODERATE PAIN LEVEL 4-6 Last administered on 05/28/16 20:32; Admin Dose 1 TAB; Start at 14:00 Hydromorphone HCl (Dilaudid) 0.5 mg Q4H PRN IV SEVERE PAIN LEVEL 7-10 Last administered on 05/24/16 08:18; Admin Dose 0.5 MG; Start 05/23/16 at 14:00 Magnesium Hydroxide (Milk Of Mag) 30 ml DAILY PRN PO CONSTIPATION Last administered on 05/26/16 23:10; Admin Dose 30 ML; Start 05/23/16 at 14:00 Bisacodyl (Dulcolax) 5 mg DAILY PRN PO CONSTIPATION Last administered on 23:11; Admin Dose 5 MG; Start 05/23/16 at 14:00 Famotidine (Pepcid) 20 mg Q12 PO Last administered on 05/29/16 09:00; Admin Dose 20 MG; Start 05/23/16 at 21:00 Lorazepam (Ativan) 1 mg Q8H PRN IV Anxiety; Start 05/23/16 at 14:00 Enoxaparin Sodium 30 mg 30 mg DAILY SC Last administered on 05/29/16 09:02; Admin Dose 30 MG; Start 05/26/16 at 09:00 Vancomycin HCl/ Sodium Chloride (Vancocin/NS) 250 ml @ 83.333 mls/ hr Q12H IVPB Last administered on 05/29/16 02:35; Admin Dose 83.333 MLS/HR; Start at 03:00 Mupirocin (Bactroban) 1 applic BID TOP Last administered on 05/29/16 09:00; Admin Dose 1 APPLIC; Start 05/26/16 at 10:30 Methadone HCl 49 mg 49 mg DAILY PO Last administered on 05/29/16 09:51; Admin Dose 49 MG; Start 05/26/16 at 11:00 Ceftriaxone Sodium (Rocephin) 50 ml @ 100 mls/hr Q24H IVPB Last administered on 05/28/16 14:31; Admin Dose 100 MLS/HR; Start 05/26/16 at 14:00 Miscellaneous Information (*Rx Drug Level Order Reminder*) VANCOMYCIN TROUGH 05/30 AT 0200 ONCE ONCE XX ; Start 05/30/16 at 02:00; Stop 05/30/16 at 02:01 DENIZ BREAUX May 29, 2016 12:16
[2016-05-29] MEDS: CEFTRIAXONE 2 GM/50 ML (PMX) 50 ML IVPB SCH (14:20)
[2016-05-29 15:01] VITALS: BP 114/68; RESP 18
[2016-05-29] MEDS: HYDROCODONE/APAP (5/325) TAB PO PRN (20:36)
[2016-05-29 21:24] VITALS: BP 98/59; RESP 20
[2016-05-30] MEDS: VANCOMYCIN 1.5 GM in SOD CHLORIDE 0.9% 250 ML IVPB SCH (01:20)
[2016-05-30 07:46] VITALS: BP 99/51; RESP 16
[2016-05-30] MEDS: MUPIROCIN 2% 22 GM OINT TOP SCH (09:51)
[2016-05-30] MEDS: FAMOTIDINE 20 MG TAB PO SCH (09:51)
[2016-05-30] MEDS: ENOXAPARIN 30 MG/0.3 ML SYG SC SCH (09:53)
[2016-05-30] MEDS: METHADONE (1 MG/ML 5 ML PO UD SYG) PO SCH (09:53)
[2016-05-30] MEDS: BISACODYL (EC) 5 MG TAB PO PRN (09:58)
--- NOTE | 2016-05-30 14:42 | CONS ---
Date/Time of Note Date/Time of Note DATE: 05/30/16 TIME: 14:41 Assessment/Plan Assessment/Plan Chief Complaint/Hosp Course SUBJECTIVE: No acute events. The patient is alert, lying comfortably in bed. Afebrile. ANTIMICROBIALS: IV vancomycin and Rocephin. MICROBIOLOGY: All cultures have been negative. Nares swab positive for MRSA. Patient is on Bactroban. PHYSICAL EXAMINATION: GENERAL: Well-developed, middle-aged woman who is alert, in no distress. HEENT: Head atraumatic, normocephalic. Sclerae anicteric. Buccal mucosa pink. NECK: Supple, trachea midline. CHEST: Rise symmetrical. Breath sounds clear. HEART: S1, S2. ABDOMEN: Soft. Bowel sounds present. EXTREMITIES: Left lower extremity with decreased edema below knee, still with significant erythema, erythema on the lateral part of her left thigh persists. ASSESSMENT: 1. Left lower extremity cellulitis. 2. History of heroin abuse, on methadone. 3. Methicillin-resistant Staphylococcus aureus nares colonization. PLAN: LLE looks much better. Will change abx to PO Bactrim, continue left lower extremity elevation. DW pt Problems: Consultation Date/Type/Reason Admit Date/Time May 23, 2016 at 11:26 Type of Consultation: ID Exam/Review of Systems Vital Signs Vitals Vital Signs Date Time Temp Pulse Resp B/P Pulse Ox O2 Delivery O2 Flow Rate FiO2 05/30/16 07:46 98.1 56 16 99/51 99 Intake and Output 05/29/16 05/29/16 05/30/16 15:00 23:00 07:00 Intake Total 1330 ml 1250 ml Output Total 1150 ml 1050 ml Balance 180 ml 200 ml Results Result Diagram: 05/28/16 0430 05/28/16 0430 Medications Medications Current Medications Ondansetron HCl (Zofran Inj) 4 mg Q6H PRN IV NAUSEA AND/OR VOMITING; Start at 14:00 Acetaminophen (Tylenol Tab) 650 mg Q6H PRN PO PAIN LEVEL 1-3 OR FEVER Last administered on 05/24/16 00:27; Admin Dose 650 MG; Start 05/23/16 at 14:00 Acetaminophen/ Hydrocodone Bitart ([place] (5/325)) 1 tab Q6H PRN PO MODERATE PAIN LEVEL 4-6 Last administered on 05/29/16 20:36; Admin Dose 1 TAB; Start at 14:00 Hydromorphone HCl (Dilaudid) 0.5 mg Q4H PRN IV SEVERE PAIN LEVEL 7-10 Last administered on 05/24/16 08:18; Admin Dose 0.5 MG; Start 05/23/16 at 14:00 Magnesium Hydroxide (Milk Of Mag) 30 ml DAILY PRN PO CONSTIPATION Last administered on 05/26/16 23:10; Admin Dose 30 ML; Start 05/23/16 at 14:00 Bisacodyl (Dulcolax) 5 mg DAILY PRN PO CONSTIPATION Last administered on 09:58; Admin Dose 5 MG; Start 05/23/16 at 14:00 Famotidine (Pepcid) 20 mg Q12 PO Last administered on 05/30/16 09:51; Admin Dose 20 MG; Start 05/23/16 at 21:00 Lorazepam (Ativan) 1 mg Q8H PRN IV Anxiety; Start 05/23/16 at 14:00 Enoxaparin Sodium 30 mg 30 mg DAILY SC Last administered on 05/30/16 09:53; Admin Dose 30 MG; Start 05/26/16 at 09:00 Vancomycin HCl/ Sodium Chloride (Vancocin/NS) 250 ml @ 83.333 mls/ hr Q12H IVPB Last administered on 05/29/16 02:35; Admin Dose 83.333 MLS/HR; Start at 03:00 Mupirocin (Bactroban) 1 applic BID TOP Last administered on 05/30/16 09:51; Admin Dose 1 APPLIC; Start 05/26/16 at 10:30 Methadone HCl 49 mg 49 mg DAILY PO Last administered on 05/30/16 09:53; Admin Dose 49 MG; Start 05/26/16 at 11:00 Ceftriaxone Sodium (Rocephin) 50 ml @ 100 mls/hr Q24H IVPB Last administered on 05/29/16 14:20; Admin Dose 100 MLS/HR; Start 05/26/16 at 14:00 SANTIAGO RAMON NP May 30, 2016 14:42
--- NOTE | 2016-05-30 14:46 | PDOCDIS ---
Discharge Instructions DIAGNOSIS Discharge Diagnosis: 1. Left lower extremity cellulitis 2. Transaminitis with cellulitis CONDITION Patient Condition: Stable HOME CARE INSTRUCTIONS: Special Diet: regular diet FOLLOW UP/APPOINTMENTS Appointments 1. Follow-up with your primary care provider within a week OTHER ORDERS: Other Orders: 1. Take your medications as prescribed DENIZ BREAUX May 30, 2016 14:46
--- NOTE | 2016-05-30 15:05 | DS ---
Date/Time of Note Date/Time of Note DATE: 05/30/16 TIME: 15:03 Discharge Summary Admission/Discharge Info Admit Date/Time May 23, 2016 at 11:26 Discharge Date/Time Final Diagnosis 1. Left lower extremity cellulitis. 2. hx Heroin abuse 3. Transaminitis. Likely secondary to underlying hepatitis B and C. 4. 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 Consults 1. Dr. Evelio Arteaga 2. Dr. Jb Glover Hospital Course This is a 50-year-old female who denies any past mental history except for heroin abuse currently on methadone came to [facility] after she started extrinsically left lower extremity edema with pain and erythema. She started that her pain started 3 days prior to this admission. She also stated that she had relapsed on her heroin and that her last visit injection was in the right shoulder. Patient was resumed on her methadone for her history of heroin. She also was noted with transaminitis on her own. After further review patient was noted with hepatitis C and hepatitis B. Patient was seen by infectious disease physician for antibiotic regimen. She was noted with cellulitis of her left lower extremity. She was placed on IV antibiotics. She did also have a Doppler of her left lower extremity that was negative for any DVT. She was also seen by vascular surgeon for possibility of PVD/PAD. After review by surgeon, no surgical intervention was needed. We did continue with conservative management. She was continued on Aviane biotics and we did elevate her leg to help with the swelling. She did have good response to this treatment. During her course of stay she did improve. She was otherwise optimized medically. She was noted with MRSA of the nares and we did place her on Bactroban. We did provide the patient with antibiotic oral regimen for home. She was educated about heroin use cessation. The plan of care was discussed with the patient and patient did verbalize understanding. On the day of discharge patient was in stable condition Discharge process time is 41 minutes Discussed plan of care with Dr. Joshua Disposition: Home Home Meds Active Scripts Mupirocin* (Bactroban*) 2% -22 Gram Oint...g., 1 APPLIC TOP BID for 7 Days Prov:DENIZ BREAUX 05/28/16 Sulfamethoxazole-Trimethoprim* (Bactrim* DS) 800-160 Mg Tab, 1 TAB PO BID, #20 TAB Prov:DENIZ BREAUX 05/28/16 Reported Medications Methadone Hcl* (Methadone Hcl*) 10 Mg/5 Ml Solution, 49 MG PO DAILY, ML 03/14/16 Follow-up Plan CONDITION Patient Condition: Stable HOME CARE INSTRUCTIONS: Special Diet: regular diet FOLLOW UP/APPOINTMENTS Appointments 1. Follow-up with your primary care provider within a week OTHER ORDERS: Other Orders: 1. Take your medications as prescribed DENIZ BREAUX May 30, 2016 15:05
[2016-05-30] MEDS: HYDROCODONE/APAP (5/325) TAB PO PRN (18:06)
[2016-05-30] MEDS ORDERED: TRIMETHOPRIM/SULFAMETHOX (DS) TAB PO SCH (21:00)
== END 2016-05-30 18:50 | disposition home or self-care (01) | DRG 603 ==
LOC: FTE 09:41 → MS1 11:26
PROVIDERS: ADMIT Family Medicine; ATTEND Family Medicine
DX: L03.116 Cellulitis of left lower limb (principal); R65.10 Systemic inflammatory response syndrome (SIRS) of non-infectious origin without acute organ dysfunction; D69.6 Thrombocytopenia, unspecified; B19.10 Unspecified viral hepatitis B without hepatic coma; E83.42 Hypomagnesemia; B19.20 Unspecified viral hepatitis C without hepatic coma; F11.10 Opioid abuse, uncomplicated; R74.0 Nonspecific elevation of levels of transaminase and lactic acid dehydrogenase [LDH]; R60.0 Localized edema; R41.3 Other amnesia; G89.29 Other chronic pain; M71.21 Synovial cyst of popliteal space [Baker], right knee; M71.22 Synovial cyst of popliteal space [Baker], left knee; Z79.891 Long term (current) use of opiate analgesic; Z86.19 Personal history of other infectious and parasitic diseases; Z22.322 Carrier or suspected carrier of Methicillin resistant Staphylococcus aureus
CPT/HCPCS: 36415; 80053; 80061; 80202; 80307; 81003; 83036; 83605; 83735; 84100; 84439; 84443; 84484; 84703; 85025; 85651; 86140; 86704; 86709; 86803; 87040; 87081; 87086; 87340; 93970; 96374; 96375; J0692; J1170; J1650; J1885; J1956; J3370; J3475; J7030; J7050